=== PATIENT | female | born 1950 | race Caucasian/White ===

== ENCOUNTER → 2023-10-05 | Outpatient (CLI) | payer OTHER, SELFPAY ==
[2023-10-05 10:09] LABS: Hematocrit 32.6 % (37-47); Hemoglobin 11.7 g/dL (12.0-15.0); Mean Corp Hgb Conc 35.9 g/dL (32-36); Mean Corpuscular Hgb 31.9 pg (27.0-32.0); Mean Corpuscular Volume 88.8 fL (81-99); Mean Platelet Vol. 13.7 fl (6.2-12.0); POSITIVE COUNT YES; Platelet Count 55 K/mm3 (150-450); RBC Distribution Width CV 12.5 % (11.6-14.6); RBC Distribution Width SD 40.7 fl (35.1-43.9); Red Blood Count 3.67 M/mm3 (4.2-5.4); White Blood Count 8.6 K/mm3 (4.4-11.0)
[2023-10-05 10:44] LABS: Differential Comment SCANNED; Scan Indicated on CBC? Y/N YES- FLAGS NOTED
[2023-10-05 11:07] LABS: ALB/GLOB Ratio 1.3 RATIO (0.9-2.4); AST(SGOT) 9 U/L (15-37); Alanine Aminotransfer ALT/SGPT 12 U/L (13-56); Albumin, Serum 4.1 g/dL (3.2-5.0); Alkaline Phosphatase 103 U/L (45-117); Anion Gap 10 (5-15); BUN 25 mg/dL (7-18); BUN/Creat Ratio 21.7 RATIO (10-20); Calcium,Total 8.9 mg/dL (8.5-10.1); Chloride 98 mmol/L (98-107); Creatinine, Serum 1.15 mg/dL (0.55-1.02); EST Glomerular Filtration Rate 50 mL/min (>60); Est Glom Filt Rate - Afr Amer 60 mL/min (>60); Globulin 3.2 g/dL (2.2-4.2); Glucose 125 mg/dL (74-106); Potassium 2.5 mmol/L (3.5-5.1); Protein, Total 7.3 g/dL (6.4-8.2); Sodium Level 136 mmol/L (136-145)
== END | disposition home or self-care (01) ==
DX: C50.911 Malignant neoplasm of unspecified site of right female breast (principal); D69.6 Thrombocytopenia, unspecified
CPT/HCPCS: 36415; 80053; 85027

== ENCOUNTER → 2023-10-09 | Outpatient (CLI) | payer OTHER, SELFPAY ==
[2023-10-09 10:24] LABS: Hemoglobin 8.7 g/dL (12.0-15.0); Mean Corp Hgb Conc 33.5 g/dL (32-36); Mean Corpuscular Hgb 31.9 pg (27.0-32.0); Mean Corpuscular Volume 95.2 fL (81-99); Mean Platelet Vol. 12.3 fl (6.2-12.0); POSITIVE COUNT YES; Platelet Count 52 K/mm3 (150-450); RBC Distribution Width CV 13.8 % (11.6-14.6); RBC Distribution Width SD 46.6 fl (35.1-43.9); Red Blood Count 2.73 M/mm3 (4.2-5.4); White Blood Count 8.1 K/mm3 (4.4-11.0)
[2023-10-09 10:26] LABS: Scan Indicated on CBC? Y/N YES- FLAGS NOTED
[2023-10-09 11:04] LABS: ALB/GLOB Ratio 1.3 RATIO (0.9-2.4); AST(SGOT) 5 U/L (15-37); Alanine Aminotransfer ALT/SGPT 11 U/L (13-56); Albumin, Serum 3.2 g/dL (3.2-5.0); Alkaline Phosphatase 77 U/L (45-117); Anion Gap 4 (5-15); BUN 9 mg/dL (7-18); BUN/Creat Ratio 8.2 RATIO (10-20); Calcium,Total 8.2 mg/dL (8.5-10.1); Chloride 106 mmol/L (98-107); EST Glomerular Filtration Rate 52 mL/min (>60); Est Glom Filt Rate - Afr Amer 63 mL/min (>60); Globulin 2.4 g/dL (2.2-4.2); Glucose 108 mg/dL (74-106); Potassium 3.9 mmol/L (3.5-5.1); Protein, Total 5.6 g/dL (6.4-8.2); Sodium Level 139 mmol/L (136-145)
== END | disposition home or self-care (01) ==
DX: D69.6 Thrombocytopenia, unspecified (principal)
CPT/HCPCS: 36415; 80053; 85027

== ENCOUNTER → 2023-10-12 | Outpatient (CLI) | payer OTHER, SELFPAY ==
[2023-10-12 11:43] LABS: Absolute Lymphocyte Count 0.98 X10^3/uL (0.83-4.51); Absolute Neutrophil Count 4.9 X10^3/uL (2.0-7.7); Basophil# 0.04 X10^3/uL; Basophil% 0.6 % (0-1); Eosinophil# 0.06 X10^3/uL; Eosinophils% 0.9 % (0-5); Hematocrit 27.9 % (37-47); Hemoglobin 9.4 g/dL (12.0-15.0); Lymphocyte # 0.98 X10^3/ul (0.83-4.51); Lymphocyte % 15.2 % (19-41); Mean Corp Hgb Conc 33.7 g/dL (32-36); Mean Corpuscular Volume 94.9 fL (81-99); Mean Platelet Vol. 11.7 fl (6.2-12.0); Monocyte# 0.38 X10^3/uL; Monocyte% 5.9 % (0-10); NRBC Flagged by Analyzer 0 % (0-5); Neutrophil # 4.86 X10^3/uL (2.7-7.7); Neutrophil % 75.5 % (47-70); POSITIVE COUNT YES; Platelet Count 49 K/mm3 (150-450); RBC Distribution Width CV 14.3 % (11.6-14.6); Red Blood Count 2.94 M/mm3 (4.2-5.4); White Blood Count 6.4 K/mm3 (4.4-11.0)
[2023-10-12 12:27] LABS: ALB/GLOB Ratio 1.5 RATIO (0.9-2.4); AST(SGOT) 7 U/L (15-37); Alanine Aminotransfer ALT/SGPT 11 U/L (13-56); Albumin, Serum 3.6 g/dL (3.2-5.0); Alkaline Phosphatase 75 U/L (45-117); Anion Gap 6 (5-15); BUN 7 mg/dL (7-18); BUN/Creat Ratio 6.9 RATIO (10-20); Calcium,Total 7.6 mg/dL (8.5-10.1); Chloride 104 mmol/L (98-107); Creatinine, Serum 1.02 mg/dL (0.55-1.02); EST Glomerular Filtration Rate 57 mL/min (>60); Est Glom Filt Rate - Afr Amer 69 mL/min (>60); Globulin 2.4 g/dL (2.2-4.2); Glucose 101 mg/dL (74-106); Potassium 3.4 mmol/L (3.5-5.1); Sodium Level 139 mmol/L (136-145)
[2023-10-13 13:10] LABS: Pathologist Review Reviewed
== END | disposition home or self-care (01) ==
DX: C50.911 Malignant neoplasm of unspecified site of right female breast (principal); D69.6 Thrombocytopenia, unspecified
CPT/HCPCS: 36415; 80053; 85025

== ENCOUNTER 2023-10-17 08:54 | Outpatient (CLI) | payer OTHER, SELFPAY ==
[2023-10-17 09:22] LABS: Hematocrit 26.9 % (37-47); Hemoglobin 8.8 g/dL (12.0-15.0); Mean Corp Hgb Conc 32.7 g/dL (32-36); Mean Corpuscular Hgb 31.8 pg (27.0-32.0); Mean Corpuscular Volume 97.1 fL (81-99); Mean Platelet Vol. 11.7 fl (6.2-12.0); POSITIVE COUNT YES; Platelet Count 55 K/mm3 (150-450); RBC Distribution Width CV 16.4 % (11.6-14.6); RBC Distribution Width SD 55.7 fl (35.1-43.9); Red Blood Count 2.77 M/mm3 (4.2-5.4)
[2023-10-17 14:23] LABS: ALB/GLOB Ratio 1.2 RATIO (0.9-2.4); AST(SGOT) 9 U/L (15-37); Alanine Aminotransfer ALT/SGPT 13 U/L (13-56); Albumin, Serum 3.5 g/dL (3.2-5.0); Alkaline Phosphatase 63 U/L (45-117); Anion Gap 6 (5-15); BUN 11 mg/dL (7-18); BUN/Creat Ratio 12.9 RATIO (10-20); Chloride 106 mmol/L (98-107); Creatinine, Serum 0.85 mg/dL (0.55-1.02); EST Glomerular Filtration Rate 70 mL/min (>60); Est Glom Filt Rate - Afr Amer 85 mL/min (>60); Globulin 2.8 g/dL (2.2-4.2); Glucose 108 mg/dL (74-106); Potassium 3.8 mmol/L (3.5-5.1); Protein, Total 6.3 g/dL (6.4-8.2); Sodium Level 139 mmol/L (136-145); T4 Free Direct 1.22 ng/dL (0.76-1.46); Thyroid Stim Hormone (TSH) 0.44 uIU/mL (0.358-3.74)
== END 2023-10-17 23:59 | disposition home or self-care (01) ==
LOC: LAB 08:56
DX: C50.911 Malignant neoplasm of unspecified site of right female breast (principal); D69.6 Thrombocytopenia, unspecified
CPT/HCPCS: 36415; 80053; 84439; 84443; 85027

== ENCOUNTER 2023-10-24 16:01 | Emergency (ER) | payer OTHER, SELFPAY ==
[2023-10-24 16:03] VITALS: BP 137/79; PULSE 91; RESP 18; TEMP 36.1; O2SAT 98; BMI 25.7
--- NOTE | 2023-10-24 16:20 | CT_ITS ---
STUDY: CT BRAIN WITHOUT CONTRAST REASON FOR EXAM: Female, 72 years old. headache RADIATION DOSAGE (If Supplied By Facility): CTDIvol = ( 44.99 ) mGy, DLP = ( 796.11 ) mGycm TECHNIQUE: Transaxial CT imaging of the brain was performed without administration of intravenous contrast material. Individualized dose optimization techniques were used for this CT. COMPARISON: No relevant priors. FINDINGS: Normal soft tissue structures. Normal calvarium. Mild cortical atrophy and minor periventricular white matter ischemic changes. Normal basal ganglia and thalami. Normal brainstem. Normal cerebellum. Partial empty sella deformity of uncertain clinical significance There is no intracranial hemorrhage. There are no findings of an acute ischemic infarction. Normal visualized paranasal sinuses. Postsurgical changes of the orbits CT/Brain/Head without Contrast IMPRESSION: Mild cortical atrophy and minor periventricular white matter ischemic changes. Partial empty sella deformity of uncertain clinical significance No evidence for obstructive hydrocephalus mass or acute bleed... Electronically Signed: Bonifacio Robles MD at 18:08 EDT ,
--- NOTE | 2023-10-24 16:20 | EKG12_ITS ---
Test Reason : SYNCOPE Blood Pressure : / mmHG Vent. Rate : 090 BPM Atrial Rate : 090 BPM P-R Int : 154 ms QRS Dur : 078 ms QT Int : 384 ms P-R-T Axes : 033 -23 037 degrees QTc Int : 469 ms Sinus rhythm with Premature atrial complexes Otherwise normal ECG Confirmed by JESSY BULLOCK, SKINNY ([id number]), story editor ERA HAMPTON ([id number]) on 10/25/2023 9:18:40 AM Referred By: Confirmed By:SKINNY JIMÉNEZ MD
--- NOTE | 2023-10-24 16:21 | US_ITS ---
STUDY: ABDOMINAL ULTRASOUND - RIGHT UPPER QUADRANT REASON FOR VISIT: Female, 72 years old pain -- hx of choledocholithiasis TECHNIQUE: Ultrasound evaluation of the right upper quadrant was performed with real-time and static lauren-scale imaging. TECHNICAL QUALITY: Adequate. COMPARISON: None. FINDINGS: Liver: The liver measures 16.4 cm. There is diffusely increased echogenicity of the liver. The bile ducts are within normal limits. There is hepatic color flow. The direction of portal flow is hepatopetal. There is no demonstrated mass lesion. Gallbladder: Gallbladder not visualized status post cholecystectomy. Common Bile Duct (C.B.D.): The common bile duct measures 0.03 mm. Pancreas: Normal size of the head, body and tail of the pancreas. There is normal echogenicity of the pancreas. There is no demonstrated pancreatic mass or cyst. Right Kidney: Normal size of the right kidney. The right kidney measures 12.4 x 6.8 x 4.1 cm. Normal renal cortex. The right cortex measures 1 cm. There is no demonstrated renal mass or cyst. There is no right hydronephrosis. US/Gallbladder IMPRESSION: Mildly enlarged fatty infiltrated liver. Status post cholecystectomy Electronically Signed: Bonifacio Robles MD at 18:03 EDT ,
--- NOTE | 2023-10-24 16:22 | EX.ED.DYSGE1 ---
HPI History of Present Illness Chief Complaint: Abn Labs Informant: patient Narrative Narrative: [facility]. Reported elevated bilirubin. Patient diagnosed with breast cancer this past July reports screening labs found to have platelets that were low which delayed surgery. She has bilateral mastectomy, started on chemotherapy every 21 days last treatment 5 days ago with increasing dosing. Headache since then. That discomfort intermittent nausea and vomiting since May. 6 years ago describes acute cholangitis was in a coma with multiple ERCPs and stenting. Review of labs in the system bilirubin 1.5 doubled from a week ago. AST ALT normal. Denies fevers or chills. Reports persistent headache. No vision changes. Today syncope x 2 states had discomfort when this happened. PFSH PFSH Home Medications zganyqkycr-fyxbtptnnmbbp-cqvzgbko 50 mg-300 mg-40 mg capsule (Fioricet) 1 cap PO Q8H PRN headache #20 caps 10/24/23 [Rx Last Taken Unknown] Allergy/AdvReac Type Severity Reaction Status Date / Time codeine Allergy PT UNSURE Verified 10/24/23 17:29 OF REACTION cyclobenzaprine Allergy PT UNSURE Verified 10/24/23 17:29 OF REACTION diazepam [From Valium] Allergy PT UNSURE Verified 10/24/23 17:29 OF REACTION diphenhydramine Allergy Itching Verified 10/24/23 17:29 [From Benadryl] gabapentin Allergy PT UNSURE Verified 10/24/23 17:29 OF REACTION indomethacin [From Indocin] Allergy PT UNSURE Verified 10/24/23 17:29 OF REACTION Iodinated Contrast Media Allergy PT UNSURE Verified 10/24/23 17:29 OF REACTION methocarbamol Allergy PT UNSURE Verified 10/24/23 17:29 OF REACTION NSAIDS (Non-Steroidal Allergy PT UNSURE Verified 10/24/23 17:29 Anti-Inflamma OF REACTION Penicillins Allergy Anaphylaxis Verified 10/24/23 17:29 pregabalin Allergy Nausea/Vom/ Verified 10/24/23 17:29 Diarrhea promethazine [From Phenergan] Allergy PT UNSURE Verified 10/24/23 17:29 OF REACTION sulfacetamide Allergy PT UNSURE Verified 10/24/23 17:29 [From Sulfamide] OF REACTION sumatriptan Allergy PT UNSURE Verified 10/24/23 17:29 OF REACTION tramadol Allergy PT UNSURE Verified 10/24/23 17:29 OF REACTION Social History Smoking Status: Never smoker ROS ROS ED Constitutional Constitutional ED: Denies chills, fever(s) or sweats Eyes Eyes: Denies change in vision ENT ENT ED: Denies dysphagia or sore throat Cardiovascular Cardiovascular: Denies chest pain, leg edema, palpitations or racing heartbeat Respiratory/Chest Respiratory/Chest: Denies cough, dyspnea or dyspnea on exertion Gastrointestinal Gastrointestinal: Reports abdominal pain and nausea; Denies diarrhea or vomiting Genitourinary Genitourinary ED: Denies dysuria, hematuria or urinary frequency Musculoskeletal Musculoskeletal: Denies back pain, extremity pain or neck pain Integumentary Denies rash or wounds Neurologic Neurologic: Reports headache(s); Denies paresthesias or weakness EXAM Physical Exam Const Vital Signs: 10/24/23 16:03 10/24/23 17:00 10/24/23 17:35 Temperature 97 F L Temperature Source Temporal Pulse Rate 91 77 Respiratory Rate 18 22 H Respiratory Effort Normal Non-Labored Respiratory Pattern Normal Blood Pressure 137/79 H 117/101 H Blood Pressure Mean 98 106 Pulse Ox 98 100 Oxygen Delivery Method Room Air Room Air 10/24/23 18:00 10/24/23 18:48 Temperature 97.4 F L Temperature Source Pulse Rate 76 77 Respiratory Rate 14 20 H Respiratory Effort Respiratory Pattern Blood Pressure 130/67 H 126/63 H Blood Pressure Mean 88 84 Pulse Ox 100 99 Oxygen Delivery Method Room Air Positive well nourished and well developed General Appearance ED: well developed and NAD HEENT Reports moist mucous membranes normocephalic and atraumatic Eyes PERRL, EOMs intact bilaterally and conjunctivae normal General Eye ED: Yes normal appearance of both eyes; Negative for scleral icterus Neck no lymphadenopathy and supple General: Negative for tenderness Chest Wall Chest: Negative for tenderness Resp normal respiratory effort and normal air movement Effort and Inspection: symmetric chest movement; Negative for respiratory distress Cardio regular rate, regular rhythm and no murmurs Peripheral Pulses: pulses 2+ throughout GI normal to inspection, nondistended, normoactive bowel sounds GI Narrative: Tenderness mid abdomen. Negative Burris's or McBurney's tenderness. Palpation: Negative for guarding or rebound tenderness present Back/Spine no CVA tenderness and no thoracic nor lumbar tenderness Extremity normal to inspection General Extremety ED: Negative for edema or tenderness General Extremity: Negative for edema Neuro oriented x3, CN's II-XII intact bilaterally and no sensory deficits noted Sensorium / Orientation: awake and alert Skin no rashes or lesions noted and no wounds MDM MDM MDM Narrative Medical decision making narrative: Interventions / MDM: Differential diagnosis: Headache, lab abnormalities, syncope Diagnosis considered but do not suspect: Choledocholithiasis however labs and ultrasound negative. No clinical meningitis. My EKG interpretation: Sinus rate of 90, no ST or T wave changes, PACs noted. QTc 469. Imaging independently reviewed and interpreted by myself: CT brain: Partial empty sella, no masses. Right upper quadrant ultrasound: Empty gallbladder, common bile duct 3 mm. Was also read by radiology. External documents reviewed: Labs from today outpatient platelets 66, total bilirubin 1.5. Test considered but not ordered:N/A ED course: Presenting syncope likely vasovagal with pain induced. EKG ordered. Shows no acute process. Patient bilirubin 1.5 not significant however doubled and having abdominal pain since May with intermittent nausea and vomiting. History of choledocholithiasis with cholangitis. Will check abdominal labs, will check right upper quadrant ultrasound. Headache symptoms will give fluids and migraine cocktail. Labs trending down total bilirubin 1.2. Lipase normal. Ultrasound normal common bile duct. CT brain negative with no mass. Headache not improved. However states stable likely chemo induced is worsened since her treatment. She has no focal deficits or meningismus symptoms. She request Fioricet for which she is tolerated in the past we will monitor symptoms. Given dose in the ED. Short prescription. Labs slight hypokalemia at 3.1. Ordered for dosing however states she has at home and wants to take when she gets home. She is ambulating department no return of symptoms. Discussed her syncope likely pain induced from vasovagal. She has nonsurgical abdomen. Lipase was normal. Hemoglobin stable at 10.1. Patient reassured outpatient follow-up with return precautions. All questions were answered. Re-evaluation: stable Disposition discussed with patient/family/significant other: Patient and family Case discussed with consulting clinician: N/A This note was generated with [employer] dictation software. It may contain incorrect words, spelling, and punctuation that were not noted in checking the note before signing. Lab Data Attestation: I reviewed the patient's lab results. Labs: Laboratory Results - last 24 hr 10/24/23 16:57 WBC 4.2 L RBC 3.21 L Hgb 10.1 L Hct 29.9 L MCV 93.1 MCH 31.5 MCHC 33.8 RDW Std Deviation 52.0 H RDW Coeff of Ramirez 15.1 H Plt Count 62 L MPV 12.7 H Immature Gran % (Auto) 1.200 H Neut % (Auto) 79.5 H Lymph % (Auto) 15.8 L [place] % (Auto) 2.1 Eos % (Auto) 0.2 Baso % (Auto) 1.2 H Absolute Neuts (auto) 3.4 Absolute Lymphs (auto) 0.67 L Nucleated RBC % 0 Differential Comment SCANNED Sodium 140 Potassium 3.1 L Chloride 106 Carbon Dioxide 28.0 Anion Gap 6 BUN 9 Creatinine 0.80 Estim Creat Clear Calc 66.55 Est GFR (MDRD) Af Amer 91 Est GFR (MDRD) Non-Af 75 BUN/Creatinine Ratio 11.3 Glucose 118 H Calcium 8.8 Total Bilirubin 1.20 H Direct Bilirubin 0.39 H AST 4 L ALT 14 Alkaline Phosphatase 75 Total Protein 7.0 Albumin 4.3 Globulin 2.7 Lipase 32 Radiography Diagnostic Testing: Clinical Impression(s) from Imaging Studies Brain CT 10/24/23 16:20 IMPRESSION: Mild cortical atrophy and minor periventricular white matter ischemic changes. Partial empty sella deformity of uncertain clinical significance No evidence for obstructive hydrocephalus mass or acute bleed... Electronically Signed: Bonifacio Robles MD at 18:08 EDT , Gallbladder Ultrasound 10/24/23 16:21 IMPRESSION: Mildly enlarged fatty infiltrated liver. Status post cholecystectomy Electronically Signed: Bonifacio Robles MD at 18:03 EDT , Discharge Plan Triage Chief Complaint: Abn Labs Other Complaint: Syncope ED Provider: Sundeep Cm Dx/Rx/DC Orders Clinical Impression: Idiopathic hyperbilirubinemia, Headache, Breast cancer, Hypokalemia, Syncope Instructions: Self-Care for Headaches, ED Hypokalemia Prescriptions: New ifolkdhoaw-sgoymbomtjyxa-yban [Fioricet] 50-300-40 mg capsule 1 cap PO Q8H PRN (Reason: headache) Qty: 20 0RF Primary Care Provider: [facility] Referrals: [facility] [Primary Care Provider] - 1 Week Activity Restrictions/Additional Instructions: Repeat labs total bili 1.2 trending down to 1.5. Lipase normal. Right upper quadrant ultrasound with common bile duct 3 mm this is normal. Head CT negative. Your potassium 3.1. Take oral potassium at home. Follow-up with your doctors. Disposition Disposition: Home, Self Care Discharge Date/Time: 10/24/23 18:50
[2023-10-24] MEDS: 0.9% Normal Saline (1000mL) 1,000 ML 1000 ML IV (16:31)
[2023-10-24] MEDS: Metoclopramide 10 MG/2 ML Vial 5 MG IV (16:31)
--- NOTE | 2023-10-24 16:31 | NURSING ---
NO OLD EKGS
[2023-10-24 17:00] VITALS: BP 117/101; PULSE 77; RESP 22; O2SAT 100
[2023-10-24 17:07] LABS: Absolute Lymphocyte Count 0.67 X10^3/uL (0.83-4.51); Absolute Neutrophil Count 3.4 X10^3/uL (2.0-7.7); Basophil# 0.05 X10^3/uL; Basophil% 1.2 % (0-1); Eosinophil# 0.01 X10^3/uL; Eosinophils% 0.2 % (0-5); Hematocrit 29.9 % (37-47); Hemoglobin 10.1 g/dL (12.0-15.0); Lymphocyte # 0.67 X10^3/ul (0.83-4.51); Lymphocyte % 15.8 % (19-41); Mean Corp Hgb Conc 33.8 g/dL (32-36); Mean Corpuscular Hgb 31.5 pg (27.0-32.0); Mean Corpuscular Volume 93.1 fL (81-99); Mean Platelet Vol. 12.7 fl (6.2-12.0); Monocyte# 0.09 X10^3/uL; Monocyte% 2.1 % (0-10); NRBC Flagged by Analyzer 0 % (0-5); Neutrophil # 3.36 X10^3/uL (2.7-7.7); Neutrophil % 79.5 % (47-70); POSITIVE COUNT YES; POSITIVE MORPHOLOGY YES; Platelet Count 62 K/mm3 (150-450); RBC Distribution Width CV 15.1 % (11.6-14.6); Red Blood Count 3.21 M/mm3 (4.2-5.4); White Blood Count 4.2 K/mm3 (4.4-11.0)
[2023-10-24 17:11] LABS: Differential Indicated SCAN CRITERIA MET
[2023-10-24 17:22] LABS: AST(SGOT) 4 U/L (15-37); Alanine Aminotransfer ALT/SGPT 14 U/L (13-56); Albumin, Serum 4.3 g/dL (3.2-5.0); Alkaline Phosphatase 75 U/L (45-117); Anion Gap 6 (5-15); BUN 9 mg/dL (7-18); BUN/Creat Ratio 11.3 RATIO (10-20); Bilirubin, Direct 0.39 mg/dL (0.00-0.30); Calcium,Total 8.8 mg/dL (8.5-10.1); Chloride 106 mmol/L (98-107); EST Glomerular Filtration Rate 75 mL/min (>60); Est Glom Filt Rate - Afr Amer 91 mL/min (>60); Estimated Creatinine Clearance 66.55 ml/min; Globulin 2.7 g/dL (2.2-4.2); Glucose 118 mg/dL (74-106); Lipase 32 U/L (13-75); Potassium 3.1 mmol/L (3.5-5.1); Sodium Level 140 mmol/L (136-145)
[2023-10-24 17:29] LABS: Differential Comment SCANNED
[2023-10-24 18:00] VITALS: BP 130/67; PULSE 76; RESP 14; O2SAT 100
[2023-10-24] MEDS: Acetaminophen/Butalbital/Caffe 1 Tablet PO (18:44)
[2023-10-24 18:48] VITALS: BP 126/63; PULSE 77; RESP 20; TEMP 36.3; O2SAT 99
== END 2023-10-24 18:50 | disposition home or self-care (01) ==
PROVIDERS: Emergency Provider Emergency Medicine; Visit Provider Emergency Medicine
DX: E80.6 Other disorders of bilirubin metabolism (principal); C50.919 Malignant neoplasm of unspecified site of unspecified female breast; E87.6 Hypokalemia; R55 Syncope and collapse; R51.9 Headache, unspecified
CPT/HCPCS: 70450; 76705; 80048; 80076; 83690; 85025; 93005; 96361; 96374; 99284

== ENCOUNTER → 2023-10-24 | Outpatient (CLI) | payer OTHER, SELFPAY ==
[2023-10-24 15:19] LABS: Hematocrit 32.3 % (37-47); Hemoglobin 10.9 g/dL (12.0-15.0); Mean Corp Hgb Conc 33.7 g/dL (32-36); Mean Corpuscular Hgb 32.1 pg (27.0-32.0); Mean Platelet Vol. 13.1 fl (6.2-12.0); POSITIVE COUNT YES; Platelet Count 66 K/mm3 (150-450); RBC Distribution Width CV 15.4 % (11.6-14.6); RBC Distribution Width SD 53.3 fl (35.1-43.9); White Blood Count 4.7 K/mm3 (4.4-11.0)
[2023-10-24 15:28] LABS: Scan Indicated on CBC? Y/N YES- FLAGS NOTED
[2023-10-24 15:30] LABS: ALB/GLOB Ratio 1.6 RATIO (0.9-2.4); AST(SGOT) 4 U/L (15-37); Alanine Aminotransfer ALT/SGPT 14 U/L (13-56); Albumin, Serum 4.6 g/dL (3.2-5.0); Alkaline Phosphatase 81 U/L (45-117); Anion Gap 8 (5-15); BUN 9 mg/dL (7-18); BUN/Creat Ratio 10.5 RATIO (10-20); Chloride 103 mmol/L (98-107); Creatinine, Serum 0.86 mg/dL (0.55-1.02); EST Glomerular Filtration Rate 69 mL/min (>60); Est Glom Filt Rate - Afr Amer 84 mL/min (>60); Globulin 2.9 g/dL (2.2-4.2); Glucose 125 mg/dL (74-106); Potassium 3.6 mmol/L (3.5-5.1); Protein, Total 7.5 g/dL (6.4-8.2); Sodium Level 138 mmol/L (136-145)
[2023-10-24 16:00] LABS: Differential Comment SCANNED
== END | disposition home or self-care (01) ==
PROVIDERS: Referring Provider Internal Medicine; Visit Provider Internal Medicine
DX: C50.911 Malignant neoplasm of unspecified site of right female breast (principal)
CPT/HCPCS: 36415; 80053; 85027

== ENCOUNTER 2023-11-01 10:40 | Outpatient (RCR) | payer OTHER, SELFPAY ==
[2023-11-01 11:22] LABS: Hematocrit 30.8 % (37-47); Hemoglobin 10.2 g/dL (12.0-15.0); Mean Corp Hgb Conc 33.1 g/dL (32-36); Mean Corpuscular Hgb 31.5 pg (27.0-32.0); Mean Corpuscular Volume 95.1 fL (81-99); Mean Platelet Vol. 11.9 fl (6.2-12.0); POSITIVE COUNT YES; Platelet Count 83 K/mm3 (150-450); RBC Distribution Width CV 15.7 % (11.6-14.6); RBC Distribution Width SD 53.8 fl (35.1-43.9); Red Blood Count 3.24 M/mm3 (4.2-5.4)
[2023-11-01 11:23] LABS: Scan Indicated on CBC? Y/N NO
[2023-11-01 12:01] LABS: ALB/GLOB Ratio 1.3 RATIO (0.9-2.4); AST(SGOT) 4 U/L (15-37); Alanine Aminotransfer ALT/SGPT 12 U/L (13-56); Albumin, Serum 3.9 g/dL (3.2-5.0); Alkaline Phosphatase 76 U/L (45-117); Anion Gap 5 (5-15); BUN 10 mg/dL (7-18); BUN/Creat Ratio 13.9 RATIO (10-20); Calcium,Total 8.8 mg/dL (8.5-10.1); Chloride 105 mmol/L (98-107); Creatinine, Serum 0.72 mg/dL (0.55-1.02); EST Glomerular Filtration Rate 85 mL/min (>60); Est Glom Filt Rate - Afr Amer 103 mL/min (>60); Glucose 113 mg/dL (74-106); Potassium 3.3 mmol/L (3.5-5.1); Protein, Total 6.9 g/dL (6.4-8.2); Sodium Level 139 mmol/L (136-145)
== END 2023-11-07 23:13 | disposition home or self-care (01) ==
LOC: LAB 10:40
PROVIDERS: Referring Provider Internal Medicine; Visit Provider Internal Medicine
DX: C50.911 Malignant neoplasm of unspecified site of right female breast (principal); D69.6 Thrombocytopenia, unspecified
CPT/HCPCS: 36415; 80053; 85027

== ENCOUNTER 2023-12-07 10:22 | Outpatient (RCR) | payer OTHER, SELFPAY ==
[2023-11-08 12:58] LABS: Absolute Lymphocyte Count 0.78 X10^3/uL (0.83-4.51); Absolute Neutrophil Count 3.4 X10^3/uL (2.0-7.7); Basophil# 0.02 X10^3/uL; Basophil% 0.4 % (0-1); Eosinophil# 0.05 X10^3/uL; Hematocrit 30.1 % (37-47); Hemoglobin 9.9 g/dL (12.0-15.0); Lymphocyte # 0.78 X10^3/ul (0.83-4.51); Lymphocyte % 16.4 % (19-41); Mean Corp Hgb Conc 32.9 g/dL (32-36); Mean Corpuscular Hgb 31.2 pg (27.0-32.0); Mean Platelet Vol. 12.5 fl (6.2-12.0); Monocyte# 0.43 X10^3/uL; NRBC Flagged by Analyzer 0 % (0-5); Neutrophil # 3.44 X10^3/uL (2.7-7.7); Neutrophil % 72.2 % (47-70); POSITIVE COUNT YES; Platelet Count 73 K/mm3 (150-450); RBC Distribution Width CV 15.2 % (11.6-14.6); RBC Distribution Width SD 52.9 fl (35.1-43.9); Red Blood Count 3.17 M/mm3 (4.2-5.4); White Blood Count 4.8 K/mm3 (4.4-11.0)
[2023-11-08 13:31] LABS: ALB/GLOB Ratio 1.3 RATIO (0.9-2.4); AST(SGOT) 7 U/L (15-37); Alanine Aminotransfer ALT/SGPT 13 U/L (13-56); Albumin, Serum 3.5 g/dL (3.2-5.0); Alkaline Phosphatase 72 U/L (45-117); Anion Gap 4 (5-15); BUN 10 mg/dL (7-18); Calcium,Total 8.7 mg/dL (8.5-10.1); Chloride 104 mmol/L (98-107); Creatinine, Serum 0.72 mg/dL (0.55-1.02); EST Glomerular Filtration Rate 85 mL/min (>60); Est Glom Filt Rate - Afr Amer 103 mL/min (>60); Globulin 2.6 g/dL (2.2-4.2); Glucose 105 mg/dL (74-106); Potassium 2.9 mmol/L (3.5-5.1); Protein, Total 6.1 g/dL (6.4-8.2); Sodium Level 139 mmol/L (136-145)
[2023-11-15 09:16] LABS: Absolute Lymphocyte Count 0.64 X10^3/uL (0.83-4.51); Absolute Neutrophil Count 1.4 X10^3/uL (2.0-7.7); Basophil# 0.04 X10^3/uL; Basophil% 1.8 % (0-1); Eosinophil# 0.03 X10^3/uL; Eosinophils% 1.3 % (0-5); Hematocrit 26.3 % (37-47); Hemoglobin 8.6 g/dL (12.0-15.0); Lymphocyte # 0.64 X10^3/ul (0.83-4.51); Lymphocyte % 28.7 % (19-41); Mean Corp Hgb Conc 32.7 g/dL (32-36); Mean Corpuscular Volume 94.9 fL (81-99); Mean Platelet Vol. 12.5 fl (6.2-12.0); Monocyte# 0.09 X10^3/uL; NRBC Flagged by Analyzer 0 % (0-5); Neutrophil % 62.9 % (47-70); POSITIVE COUNT YES; POSITIVE MORPHOLOGY YES; Platelet Count 42 K/mm3 (150-450); RBC Distribution Width CV 13.5 % (11.6-14.6); RBC Distribution Width SD 47.8 fl (35.1-43.9); Red Blood Count 2.77 M/mm3 (4.2-5.4); White Blood Count 2.2 K/mm3 (4.4-11.0)
[2023-11-15 09:25] LABS: Differential Indicated SCAN CRITERIA MET
[2023-11-15 10:03] LABS: ALB/GLOB Ratio 1.3 RATIO (0.9-2.4); AST(SGOT) 7 U/L (15-37); Alanine Aminotransfer ALT/SGPT 12 U/L (13-56); Albumin, Serum 3.4 g/dL (3.2-5.0); Alkaline Phosphatase 80 U/L (45-117); Anion Gap 5 (5-15); BUN 13 mg/dL (7-18); BUN/Creat Ratio 16.7 RATIO (10-20); Calcium,Total 8.4 mg/dL (8.5-10.1); Chloride 103 mmol/L (98-107); Creatinine, Serum 0.78 mg/dL (0.55-1.02); EST Glomerular Filtration Rate 78 mL/min (>60); Est Glom Filt Rate - Afr Amer 94 mL/min (>60); Globulin 2.7 g/dL (2.2-4.2); Glucose 105 mg/dL (74-106); Potassium 3.4 mmol/L (3.5-5.1); Protein, Total 6.1 g/dL (6.4-8.2); Sodium Level 137 mmol/L (136-145)
[2023-11-22 09:35] LABS: Absolute Lymphocyte Count 0.45 X10^3/uL (0.83-4.51); Absolute Neutrophil Count 0.7 X10^3/uL (2.0-7.7); Basophil# 0.01 X10^3/uL; Basophil% 0.7 % (0-1); Eosinophil# 0.02 X10^3/uL; Eosinophils% 1.4 % (0-5); Hematocrit 27.3 % (37-47); Hemoglobin 8.8 g/dL (12.0-15.0); Lymphocyte # 0.45 X10^3/ul (0.83-4.51); Mean Corp Hgb Conc 32.2 g/dL (32-36); Mean Corpuscular Hgb 30.6 pg (27.0-32.0); Mean Corpuscular Volume 94.8 fL (81-99); Mean Platelet Vol. 11.2 fl (6.2-12.0); Monocyte% 20.7 % (0-10); NRBC Flagged by Analyzer 0 % (0-5); Neutrophil # 0.65 X10^3/uL (2.7-7.7); Neutrophil % 44.8 % (47-70); POSITIVE COUNT YES; POSITIVE DIFFERENTIAL YES; Platelet Count 63 K/mm3 (150-450); RBC Distribution Width CV 14.5 % (11.6-14.6); RBC Distribution Width SD 48.5 fl (35.1-43.9); Red Blood Count 2.88 M/mm3 (4.2-5.4); White Blood Count 1.5 K/mm3 (4.4-11.0)
[2023-11-22 10:07] LABS: Differential Indicated SCAN CRITERIA MET
[2023-11-22 10:26] LABS: ALB/GLOB Ratio 1.2 RATIO (0.9-2.4); AST(SGOT) < 3 U/L (15-37); Alanine Aminotransfer ALT/SGPT 11 U/L (13-56); Albumin, Serum 3.5 g/dL (3.2-5.0); Alkaline Phosphatase 71 U/L (45-117); Anion Gap 4 (5-15); BUN 9 mg/dL (7-18); BUN/Creat Ratio 12.5 RATIO (10-20); Calcium,Total 8.8 mg/dL (8.5-10.1); Chloride 107 mmol/L (98-107); Creatinine, Serum 0.72 mg/dL (0.55-1.02); EST Glomerular Filtration Rate 85 mL/min (>60); Est Glom Filt Rate - Afr Amer 103 mL/min (>60); Globulin 2.8 g/dL (2.2-4.2); Glucose 113 mg/dL (74-106); Potassium 3.2 mmol/L (3.5-5.1); Protein, Total 6.3 g/dL (6.4-8.2); Sodium Level 140 mmol/L (136-145)
[2023-11-24 12:06] LABS: Pathologist Review Reviewed
[2023-11-28 10:36] LABS: Absolute Lymphocyte Count 0.79 X10^3/uL (0.83-4.51); Absolute Neutrophil Count 3.3 X10^3/uL (2.0-7.7); Basophil# 0.01 X10^3/uL; Basophil% 0.2 % (0-1); Eosinophil# 0.05 X10^3/uL; Eosinophils% 1.1 % (0-5); Hemoglobin 9.9 g/dL (12.0-15.0); Lymphocyte # 0.79 X10^3/ul (0.83-4.51); Lymphocyte % 17.1 % (19-41); Mean Corpuscular Hgb 31.1 pg (27.0-32.0); Mean Corpuscular Volume 94.3 fL (81-99); Mean Platelet Vol. 11.9 fl (6.2-12.0); Monocyte# 0.35 X10^3/uL; Monocyte% 7.6 % (0-10); NRBC Flagged by Analyzer 0 % (0-5); Neutrophil # 3.32 X10^3/uL (2.7-7.7); Neutrophil % 71.8 % (47-70); POSITIVE COUNT YES; Platelet Count 69 K/mm3 (150-450); RBC Distribution Width CV 15.1 % (11.6-14.6); RBC Distribution Width SD 52.1 fl (35.1-43.9); Red Blood Count 3.18 M/mm3 (4.2-5.4); White Blood Count 4.6 K/mm3 (4.4-11.0)
[2023-11-28 11:17] LABS: ALB/GLOB Ratio 1.3 RATIO (0.9-2.4); AST(SGOT) 6 U/L (15-37); Alanine Aminotransfer ALT/SGPT 11 U/L (13-56); Albumin, Serum 3.5 g/dL (3.2-5.0); Alkaline Phosphatase 71 U/L (45-117); Anion Gap 9 (5-15); BUN 11 mg/dL (7-18); BUN/Creat Ratio 14.2 RATIO (10-20); Calcium,Total 8.5 mg/dL (8.5-10.1); Chloride 104 mmol/L (98-107); Creatinine, Serum 0.77 mg/dL (0.55-1.02); EST Glomerular Filtration Rate 78 mL/min (>60); Est Glom Filt Rate - Afr Amer 95 mL/min (>60); Globulin 2.7 g/dL (2.2-4.2); Glucose 113 mg/dL (74-106); Potassium 3.2 mmol/L (3.5-5.1); Protein, Total 6.2 g/dL (6.4-8.2); Sodium Level 139 mmol/L (136-145)
[2023-12-07 11:27] LABS: Absolute Lymphocyte Count 0.47 X10^3/uL (0.83-4.51); Absolute Neutrophil Count 1.2 X10^3/uL (2.0-7.7); Basophil# 0.01 X10^3/uL; Basophil% 0.6 % (0-1); Eosinophil# 0.01 X10^3/uL; Eosinophils% 0.6 % (0-5); Hematocrit 26.4 % (37-47); Hemoglobin 8.8 g/dL (12.0-15.0); Lymphocyte # 0.47 X10^3/ul (0.83-4.51); Mean Corp Hgb Conc 33.3 g/dL (32-36); Mean Corpuscular Volume 90.1 fL (81-99); Mean Platelet Vol. 12.7 fl (6.2-12.0); Monocyte# 0.08 X10^3/uL; Monocyte% 4.6 % (0-10); NRBC Flagged by Analyzer 0 % (0-5); Neutrophil # 1.16 X10^3/uL (2.7-7.7); Neutrophil % 66.6 % (47-70); POSITIVE COUNT YES; POSITIVE DIFFERENTIAL YES; RBC Distribution Width CV 13.2 % (11.6-14.6); RBC Distribution Width SD 44.3 fl (35.1-43.9); Red Blood Count 2.93 M/mm3 (4.2-5.4); White Blood Count 1.7 K/mm3 (4.4-11.0)
[2023-12-07 11:42] LABS: Differential Indicated SCAN CRITERIA MET; Platelet Count 42 K/mm3 (150-450)
[2023-12-07 11:57] LABS: ALB/GLOB Ratio 1.2 RATIO (0.9-2.4); AST(SGOT) 7 U/L (15-37); Alanine Aminotransfer ALT/SGPT 11 U/L (13-56); Albumin, Serum 3.4 g/dL (3.2-5.0); Alkaline Phosphatase 68 U/L (45-117); Anion Gap 6 (5-15); BUN 12 mg/dL (7-18); BUN/Creat Ratio 17.1 RATIO (10-20); Calcium,Total 8.8 mg/dL (8.5-10.1); Chloride 100 mmol/L (98-107); EST Glomerular Filtration Rate 87 mL/min (>60); Est Glom Filt Rate - Afr Amer 106 mL/min (>60); Globulin 2.8 g/dL (2.2-4.2); Glucose 108 mg/dL (74-106); Potassium 3.1 mmol/L (3.5-5.1); Protein, Total 6.2 g/dL (6.4-8.2); Sodium Level 136 mmol/L (136-145)
[2023-12-07 13:20] LABS: Anisocytosis 2+; Differential Comment SCANNED; Microcytosis 1+; Tear Drop Cell 1+
[2023-12-07 13:21] LABS: Ovalocyte 1+
[2023-12-08 15:44] LABS: Pathologist Review Reviewed
== END 2023-12-07 18:00 | disposition home or self-care (01) ==
LOC: LAB 10:22
PROVIDERS: Referring Provider Internal Medicine; Visit Provider Internal Medicine
DX: C50.911 Malignant neoplasm of unspecified site of right female breast (principal); D64.9 Anemia, unspecified
CPT/HCPCS: 36415; 80053; 85025

== ENCOUNTER 2023-12-13 09:22 | Emergency (ER) | payer OTHER, SELFPAY ==
[2023-12-13 09:25] VITALS: BP 119/59; PULSE 76; RESP 16; TEMP 35.4; O2SAT 98; BMI 26.0
--- NOTE | 2023-12-13 09:31 | EDS_ITS ---
HPI History of Present Illness Chief Complaint: Headache PFSH PFSH Home Medications ?Medication ?Instructions ?Recorded ?Last Taken ?Type szvvppbrlv-pcahosekchfxi-unjssrhs 1 cap PO Q8H PRN headache #20 caps 10/24/23 Unknown Rx 50 mg-300 mg-40 mg capsule (Fioricet) Allergy/AdvReac Type Severity Reaction Status Date / Time cyclobenzaprine Allergy PT UNSURE Verified 12/13/23 09:24 OF REACTION diazepam (From Valium) Allergy PT UNSURE Verified 12/13/23 09:24 OF REACTION diphenhydramine (From Allergy Itching Verified 12/13/23 09:24 Benadryl) gabapentin Allergy PT UNSURE Verified 12/13/23 09:24 OF REACTION indomethacin (From Indocin) Allergy PT UNSURE Verified 12/13/23 09:24 OF REACTION Iodinated Contrast Media Allergy PT UNSURE Verified 12/13/23 09:24 OF REACTION methocarbamol Allergy PT UNSURE Verified 12/13/23 09:24 OF REACTION NSAIDS (Non-Steroidal Allergy PT UNSURE Verified 12/13/23 09:24 Anti-Inflamma OF REACTION Penicillins Allergy Anaphylaxis Verified 12/13/23 09:24 pregabalin Allergy Nausea/Vom/ Verified 12/13/23 09:24 Diarrhea promethazine (From Phenergan) Allergy PT UNSURE Verified 12/13/23 09:24 OF REACTION sulfacetamide (From Allergy PT UNSURE Verified 12/13/23 09:24 Sulfamide) OF REACTION sumatriptan Allergy PT UNSURE Verified 12/13/23 09:24 OF REACTION tramadol Allergy PT UNSURE Verified 12/13/23 09:24 OF REACTION Social History Smoking Status: Never smoker EXAM Physical Exam Const Vital Signs: 12/13/23 09:25 Temperature 95.7 F L Temperature Source Temporal Pulse Rate 76 Respiratory Rate 16 Blood Pressure 119/59 L Blood Pressure Mean 79 Pulse Ox 98 Oxygen Delivery Method Room Air MDM MDM MDM Narrative Medical decision making narrative: HISTORY OF PRESENT ILLNESS: 73-year-old female presents with headache. Notes chemo 1 week ago. REVIEW OF SYSTEMS: Pertinent positives: [] Pertinent negatives: [] PHYSICAL EXAM: Nursing triage notes reviewed, Vital signs reviewed Constitutional: please see mdm HENT: MMM Eyes: Pupils equal round and reactive to light, Extraocular muscles intact Neck: No stridor, no JVD, full neck ROM Lungs: Clear to auscultation, No wheezing or rales. No increased work of breathing, no conversational dyspnea, no accessory muscle use, no nasal flaring. No respiratory distress noted Heart: Regular rate and rhythm, No murmurs, No rubs and No gallops, 2+ distal pulses (radial, femoral, posterior tibial) in all extremities Abdomen: Soft, there is no tenderness, rigidity, rebound or guarding, no obvious peritoneal signs, no palpable pulsatile abdominal masses, no auscultated abdominal bruit : No CVAT Extremities: No edema Neuro: No focal neurological deficits, cranial nerves II through XII intact, 5/5 strength in all extremities. Intact sensation to light touch in all extremities, 2+ reflexes bilateral patella tendons. Normal gait. No ataxia. Skin: No rash or lesions noted MEDICAL DECISION MAKING: Chief Complaint: [] External records reviewed: Imaging reviewed: CT scan of the head shows mild cortical atrophy and minor periventricular matter ischemic changes Factors affecting care: none [] Social determinants of health: none [] History obtained from others: none [] Consults: none [] MDM Narrative: [] I considered the following differential diagnosis: [] ALL IMAGES (IF OBTAINED) HAVE BEEN PERSONALLY REVIEWED AND INTERPRETED BY MYSELF. [] The patient and/or family, caregivers express understanding. The patient and/or family, caregivers agrees with the plan. Shared decision making: I will have a discussion with the patient and or visitors regarding risk/benefits of further testing or admission. They will be made aware of of the risk/benefits inherent in this decision they will be given the opportunity to voice understanding. Total critical care time today provided was at least 0 [] minutes. This excludes separately billable procedures. Critical care time (if documented) is secondary to the patient having high probability of clinically significant/life threatening deterioration in the patient's condition which required my urgent intervention. Impression: [] Dispo: [] This note was generated with [employer] dictation software. It may contain incorrect words, spelling, and punctuation that were not noted in review of the chart prior to signing. Discharge Plan Triage Chief Complaint: Headache ED Provider: Josh Álvarez Dx/Rx/DC Orders Prescriptions: No Action zduzrgauon-vyvnxonkpsaku-ytjm [Fioricet] 50-300-40 mg capsule 1 cap PO Q8H PRN (Reason: headache) Qty: 20 0RF [facility] [facility] - Print Language: Serbian
--- NOTE | 2023-12-13 09:31 | EX.ED.DYSGE1 ---
HPI History of Present Illness Chief Complaint: Headache PFSH PFSH Home Medications ?Medication ?Instructions ?Recorded ?Last Taken ?Type swaefapsiz-ibwclgifwqjue-uwhfdshd 1 cap PO Q8H PRN headache #20 caps 10/24/23 Unknown Rx 50 mg-300 mg-40 mg capsule (Fioricet) zvrneemouo-vxxwkdmydwbsu-lxnvggjc 1 cap PO Q6H PRN headache #60 caps 12/13/23 Unknown Rx 50 mg-300 mg-40 mg capsule (Fioricet) Allergy/AdvReac Type Severity Reaction Status Date / Time cyclobenzaprine Allergy PT UNSURE Verified 12/13/23 09:24 OF REACTION diazepam (From Valium) Allergy PT UNSURE Verified 12/13/23 09:24 OF REACTION diphenhydramine (From Allergy Itching Verified 12/13/23 09:24 Benadryl) gabapentin Allergy PT UNSURE Verified 12/13/23 09:24 OF REACTION indomethacin (From Indocin) Allergy PT UNSURE Verified 12/13/23 09:24 OF REACTION Iodinated Contrast Media Allergy PT UNSURE Verified 12/13/23 09:24 OF REACTION methocarbamol Allergy PT UNSURE Verified 12/13/23 09:24 OF REACTION NSAIDS (Non-Steroidal Allergy PT UNSURE Verified 12/13/23 09:24 Anti-Inflamma OF REACTION Penicillins Allergy Anaphylaxis Verified 12/13/23 09:24 pregabalin Allergy Nausea/Vom/ Verified 12/13/23 09:24 Diarrhea promethazine (From Phenergan) Allergy PT UNSURE Verified 12/13/23 09:24 OF REACTION sulfacetamide (From Allergy PT UNSURE Verified 12/13/23 09:24 Sulfamide) OF REACTION sumatriptan Allergy PT UNSURE Verified 12/13/23 09:24 OF REACTION tramadol Allergy PT UNSURE Verified 12/13/23 09:24 OF REACTION Social History Smoking Status: Never smoker EXAM Physical Exam Const Vital Signs: 12/13/23 09:25 12/13/23 09:54 Temperature 95.7 F L 98 F Temperature Source Temporal Pulse Rate 76 81 Respiratory Rate 16 18 Blood Pressure 119/59 L 119/68 Blood Pressure Mean 79 85 Pulse Ox 98 98 Oxygen Delivery Method Room Air MDM MDM MDM Narrative Medical decision making narrative: HISTORY OF PRESENT ILLNESS: 73-year-old female presents with headache. Notes chemo 1 week ago. Denies falls or head trauma. Patient denies sudden onset or thunderclap headache, denies maximal intensity within 1 minute, vomiting, neck pain, stiffness, changes in vision, fever, history malignancy, syncope, or seizures associated with headache. REVIEW OF SYSTEMS: Pertinent positives: Headache Pertinent negatives: Numbness, tingling, loss sensation, loss of vision, difficulty swallowing, slurred speech, facial drooping, neck stiffness, fever PHYSICAL EXAM: Nursing triage notes reviewed, Vital signs reviewed Constitutional: please see mdm HENT: MMM Eyes: Pupils equal round and reactive to light, Extraocular muscles intact Neck: No stridor, no JVD, full neck ROM Lungs: Clear to auscultation, No wheezing or rales. No increased work of breathing, no conversational dyspnea, no accessory muscle use, no nasal flaring. No respiratory distress noted Heart: Regular rate and rhythm, No murmurs, No rubs and No gallops, 2+ distal pulses (radial, femoral, posterior tibial) in all extremities Abdomen: Soft, there is no tenderness, rigidity, rebound or guarding, no obvious peritoneal signs, no palpable pulsatile abdominal masses, no auscultated abdominal bruit : No CVAT Extremities: No edema Neuro: Alert and oriented x3, neuro exam at baseline, cranial nerves II through XII are intact. No pain with extraocular muscle movement. There is negative test of skew. 5 of 5 strength in upper and lower extremities in flexion extension. Intact sensation to light touch in upper and lower extremity dermatomes. No truncal or extremity ataxia. No dysdiadochokinesia. Normal gait. 2+ reflexes in upper and lower extremities. No meningeal signs. Negative Babinski. NIH of 0. Skin: No rash or lesions noted MEDICAL DECISION MAKING: Chief Complaint: Headache External records reviewed: Imaging reviewed: CT scan of the head shows mild cortical atrophy and minor periventricular matter ischemic changes Factors affecting care: History of migraines Social determinants of health: Denies drugs History obtained from others: none Consults: none [facility] Narrative: The patient was hemodynamically stable, afebrile and nontoxic-appearing. Nonfocal neuroexam. I considered the following differential diagnosis: Brain mass, ICH, meningitis I offered the patient [facility] imaging given advanced age, headache and history of breast cancer concern for metastases. Patient understood risk and benefits was alert and orient x 3 displayed capacity to make own medical decisions. She decided to forego CT scan at this time. I offered IV fluids, IV antimigraine medication. Patient opted for oral Fioricet and prescription Fioricet instead. She states she has a neurology appointment in the next several weeks as she intends to keep. Strict return precautions were discussed. Patient was discharged in stable condition The patient and/or family, caregivers express understanding. The patient and/or family, caregivers agrees with the plan. Shared decision making: I will have a discussion with the patient and or visitors regarding risk/benefits of further testing or admission. They will be made aware of of the risk/benefits inherent in this decision they will be given the opportunity to voice understanding. Total critical care time today provided was at least 0 minutes. This excludes separately billable procedures. Critical care time (if documented) is secondary to the patient having high probability of clinically significant/life threatening deterioration in the patient's condition which required my urgent intervention. Impression: 1. Headache 2. History of migraines Dispo: Discharge home This note was generated with [employer] dictation software. It may contain incorrect words, spelling, and punctuation that were not noted in review of the chart prior to signing. Discharge Plan Triage Chief Complaint: Headache ED Provider: Josh Álvarez Dx/Rx/DC Orders Instructions: ED Headache Unspecified Prescriptions: New sewmeqdcri-vqccvdmfgzich-vvkh [Fioricet] 50-300-40 mg capsule 1 cap PO Q6H PRN (Reason: headache) Qty: 60 0RF No Action nufddsokyn-jfosjdhankwwo-uffm [Fioricet] 50-300-40 mg capsule 1 cap PO Q8H PRN (Reason: headache) Qty: 20 0RF [facility]Primary [facility] Provider] - Activity Restrictions/Additional Instructions: Thank you for trusting us with your care today! Please take Fioricet as needed every 4 hours. Please return to the emergency department if your symptoms change or worsen. Specifically if you develop visual changes, slurred speech, loss of movement or sensation in your arms or legs. Please follow with your primary care physician for further outpatient evaluation and management. Print Language: Indian Disposition Disposition: Home, Self Care Discharge Date/Time: 12/13/23 09:54
[2023-12-13 09:54] VITALS: BP 119/68; PULSE 81; RESP 18; TEMP 36.6; O2SAT 98
== END 2023-12-13 09:54 | disposition home or self-care (01) ==
LOC: ED 09:47
PROVIDERS: Emergency Provider Emergency Medicine; Visit Provider Emergency Medicine
DX: R51.9 Headache, unspecified (principal)
CPT/HCPCS: 99282

== ENCOUNTER 2023-12-20 08:17 | Outpatient (RCR) | payer OTHER, SELFPAY ==
[2023-12-12 08:42] LABS: Absolute Lymphocyte Count 0.53 X10^3/uL (0.83-4.51); Absolute Neutrophil Count 0.5 X10^3/uL (2.0-7.7); Basophil# 0.01 X10^3/uL; Basophil% 0.7 % (0-1); Eosinophil# 0.03 X10^3/uL; Eosinophils% 2.1 % (0-5); Hematocrit 27.7 % (37-47); Lymphocyte # 0.53 X10^3/ul (0.83-4.51); Lymphocyte % 37.6 % (19-41); Mean Corp Hgb Conc 32.5 g/dL (32-36); Mean Corpuscular Hgb 29.8 pg (27.0-32.0); Mean Corpuscular Volume 91.7 fL (81-99); Mean Platelet Vol. 12.4 fl (6.2-12.0); Monocyte# 0.27 X10^3/uL; Monocyte% 19.1 % (0-10); NRBC Flagged by Analyzer 0 % (0-5); Neutrophil # 0.52 X10^3/uL (2.7-7.7); POSITIVE COUNT YES; POSITIVE DIFFERENTIAL YES; Platelet Count 68 K/mm3 (150-450); RBC Distribution Width CV 14.3 % (11.6-14.6); RBC Distribution Width SD 47.3 fl (35.1-43.9); Red Blood Count 3.02 M/mm3 (4.2-5.4)
[2023-12-12 09:02] LABS: Differential Indicated SCAN CRITERIA MET; White Blood Count 1.4 K/mm3 (4.4-11.0)
[2023-12-12 09:22] LABS: ALB/GLOB Ratio 1.6 RATIO (0.9-2.4); AST(SGOT) 4 U/L (15-37); Alanine Aminotransfer ALT/SGPT 11 U/L (13-56); Albumin, Serum 3.9 g/dL (3.2-5.0); Alkaline Phosphatase 68 U/L (45-117); Anion Gap 7 (5-15); BUN 12 mg/dL (7-18); BUN/Creat Ratio 16.4 RATIO (10-20); Calcium,Total 8.7 mg/dL (8.5-10.1); Chloride 107 mmol/L (98-107); Creatinine, Serum 0.73 mg/dL (0.55-1.02); EST Glomerular Filtration Rate 83 mL/min (>60); Est Glom Filt Rate - Afr Amer 101 mL/min (>60); Globulin 2.5 g/dL (2.2-4.2); Glucose 109 mg/dL (74-106); Potassium 3.1 mmol/L (3.5-5.1); Protein, Total 6.4 g/dL (6.4-8.2); Sodium Level 139 mmol/L (136-145)
[2023-12-12 09:46] LABS: Platelet Estimate MOD DEC (ADEQ)
[2023-12-12 13:26] LABS: Pathologist Review Reviewed
[2023-12-20 09:50] LABS: Absolute Lymphocyte Count 0.67 X10^3/uL (0.83-4.51); Absolute Neutrophil Count 3.8 X10^3/uL (2.0-7.7); Basophil# 0.02 X10^3/uL; Basophil% 0.4 % (0-1); Eosinophil# 0.05 X10^3/uL; Hematocrit 31.5 % (37-47); Hemoglobin 10.1 g/dL (12.0-15.0); Lymphocyte # 0.67 X10^3/ul (0.83-4.51); Lymphocyte % 13.6 % (19-41); Mean Corp Hgb Conc 32.1 g/dL (32-36); Mean Corpuscular Hgb 30.6 pg (27.0-32.0); Mean Corpuscular Volume 95.5 fL (81-99); Mean Platelet Vol. 12.5 fl (6.2-12.0); Monocyte# 0.28 X10^3/uL; Monocyte% 5.7 % (0-10); NRBC Flagged by Analyzer 0 % (0-5); Neutrophil # 3.75 X10^3/uL (2.7-7.7); Neutrophil % 75.9 % (47-70); POSITIVE COUNT YES; Platelet Count 77 K/mm3 (150-450); RBC Distribution Width CV 15.5 % (11.6-14.6); RBC Distribution Width SD 53.4 fl (35.1-43.9); White Blood Count 4.9 K/mm3 (4.4-11.0)
[2023-12-20 10:23] LABS: ALB/GLOB Ratio 1.3 RATIO (0.9-2.4); AST(SGOT) 9 U/L (15-37); Alanine Aminotransfer ALT/SGPT 13 U/L (13-56); Albumin, Serum 3.6 g/dL (3.2-5.0); Alkaline Phosphatase 63 U/L (45-117); Anion Gap 6 (5-15); BUN 15 mg/dL (7-18); BUN/Creat Ratio 19.4 RATIO (10-20); Calcium,Total 8.8 mg/dL (8.5-10.1); Chloride 113 mmol/L (98-107); Creatinine, Serum 0.77 mg/dL (0.55-1.02); EST Glomerular Filtration Rate 78 mL/min (>60); Est Glom Filt Rate - Afr Amer 95 mL/min (>60); Globulin 2.7 g/dL (2.2-4.2); Glucose 101 mg/dL (74-106); Potassium 4.4 mmol/L (3.5-5.1); Protein, Total 6.3 g/dL (6.4-8.2); Sodium Level 141 mmol/L (136-145)
== END 2023-12-20 18:00 | disposition home or self-care (01) ==
LOC: LAB 08:17
PROVIDERS: Referring Provider Internal Medicine; Visit Provider Internal Medicine
DX: D69.6 Thrombocytopenia, unspecified (principal); C50.911 Malignant neoplasm of unspecified site of right female breast
CPT/HCPCS: 36415; 80053; 85025

== ENCOUNTER 2024-04-25 15:54 | Emergency (ER) | payer OTHER, SELFPAY ==
[2024-04-25 15:55] VITALS: BP 153/71; PULSE 76; RESP 16; TEMP 36.1; O2SAT 100; BMI 27.6
--- NOTE | 2024-04-25 16:53 | EDS_ITS ---
HPI History of Present Illness Chief Complaint: Headache Informant: patient [facility] Home Medications ?Medication ?Instructions ?Recorded ?Last Taken ?Type ryuhflcprt-sjktzmqxlmtvg-fudwludk 1 cap PO Q8H PRN headache #20 caps 10/24/23 Unknown Rx 50 mg-300 mg-40 mg capsule (Fioricet) evjegmvoqw-zxcgrdjxogwsc-ggndvgcj 1 cap PO Q6H PRN headache #60 caps 12/13/23 Unknown Rx 50 mg-300 mg-40 mg capsule (Fioricet) bxqwxmdhgo-hefwpkqfblaow-zqxafqfk 1 cap PO TID PRN pain #30 caps 04/25/24 Unknown Rx 50 mg-300 mg-40 mg capsule (Fioricet) Allergy/AdvReac Type Severity Reaction Status Date / Time cyclobenzaprine Allergy PT UNSURE Verified 12/13/23 09:24 OF REACTION diazepam (From Valium) Allergy PT UNSURE Verified 12/13/23 09:24 OF REACTION diphenhydramine (From Allergy Itching Verified 12/13/23 09:24 Benadryl) gabapentin Allergy PT UNSURE Verified 12/13/23 09:24 OF REACTION indomethacin (From Indocin) Allergy PT UNSURE Verified 12/13/23 09:24 OF REACTION Iodinated Contrast Media Allergy PT UNSURE Verified 12/13/23 09:24 OF REACTION methocarbamol Allergy PT UNSURE Verified 12/13/23 09:24 OF REACTION NSAIDS (Non-Steroidal Allergy PT UNSURE Verified 12/13/23 09:24 Anti-Inflamma OF REACTION Penicillins Allergy Anaphylaxis Verified 12/13/23 09:24 pregabalin Allergy Nausea/Vom/ Verified 12/13/23 09:24 Diarrhea promethazine (From Phenergan) Allergy PT UNSURE Verified 12/13/23 09:24 OF REACTION sulfacetamide (From Allergy PT UNSURE Verified 12/13/23 09:24 Sulfamide) OF REACTION sumatriptan Allergy PT UNSURE Verified 12/13/23 09:24 OF REACTION tramadol Allergy PT UNSURE Verified 12/13/23 09:24 OF REACTION Social History Smoking Status: Never smoker EXAM Physical Exam Const Vital Signs: 04/25/24 15:55 Temperature 96.9 F L Temperature Source Temporal Pulse Rate 76 Respiratory Rate 16 Blood Pressure 153/71 H Blood Pressure Mean 98 Pulse Ox 100 Oxygen Delivery Method Room Air Discharge Plan Triage Chief Complaint: Headache ED Provider: Darin Charles Dx/Rx/DC Orders Clinical Impression: Migraine headache Instructions: ED Headache Unspecified Prescriptions: New zelaybmoxi-vmvlmqzmppawj-xklx [Fioricet] 50-300-40 mg capsule 1 cap PO TID PRN (Reason: pain) Qty: 30 0RF No Action wbwxstpttm-wcrlablmqosgy-ywrq [Fioricet] 50-300-40 mg capsule 1 cap PO Q8H PRN (Reason: headache) Qty: 20 0RF dfavvrxhfx-kscfjvhxcsfdx-zdey [Fioricet] 50-300-40 mg capsule 1 cap PO Q6H PRN (Reason: headache) Qty: 60 0RF [facility] [facility] [Primary [facility] Provider] - As soon as possible Print Language: [place] Disposition Disposition: Home, Self Care
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
[2024-04-25 16:56] VITALS: BP 144/78; PULSE 64; RESP 18; TEMP 36.6; O2SAT 99
== END 2024-04-25 17:01 | disposition home or self-care (01) ==
LOC: ED 17:00
PROVIDERS: Emergency Provider Emergency Medicine; Referring Provider Emergency Medicine; Visit Provider Emergency Medicine
DX: G43.909 Migraine, unspecified, not intractable, without status migrainosus (principal)
CPT/HCPCS: 99282

== ENCOUNTER 2024-07-07 12:05 | Emergency (ER) | payer OTHER, SELFPAY ==
[2024-07-07 12:05] VITALS: BP 146/71; PULSE 82; RESP 16; TEMP 35.9; O2SAT 99
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
[2024-07-07 12:50] VITALS: BMI 27.5
[2024-07-07 12:51] VITALS: BP 139/80; PULSE 86; RESP 18; TEMP 36.4; O2SAT 96
== END 2024-07-07 12:52 | disposition home or self-care (01) ==
PROVIDERS: Emergency Provider Emergency Medicine; Visit Provider Emergency Medicine
DX: G43.909 Migraine, unspecified, not intractable, without status migrainosus (principal)
CPT/HCPCS: 99282

== ENCOUNTER → 2024-07-18 | Outpatient (CLI) | payer OTHER, SELFPAY ==
[2024-07-18 15:15] LABS: Absolute Lymphocyte Count 0.68 X10^3/uL (0.83-4.51); Absolute Neutrophil Count 4.9 X10^3/uL (2.0-7.7); Basophil# 0.01 X10^3/uL; Basophil% 0.2 % (0-1); Eosinophil# 0.08 X10^3/uL; Eosinophils% 1.3 % (0-5); Hematocrit 31.1 % (37-47); Hemoglobin 9.6 g/dL (12.0-15.0); Lymphocyte # 0.68 X10^3/ul (0.83-4.51); Lymphocyte % 11.4 % (19-41); Mean Corp Hgb Conc 30.9 g/dL (32-36); Mean Corpuscular Hgb 26.2 pg (27.0-32.0); Mean Corpuscular Volume 84.7 fL (81-99); Monocyte# 0.31 X10^3/uL; Monocyte% 5.2 % (0-10); NRBC Flagged by Analyzer 0 % (0-5); Neutrophil # 4.87 X10^3/uL (2.7-7.7); Neutrophil % 81.2 % (47-70); POSITIVE COUNT YES; Platelet Count 64 K/mm3 (150-450); RBC Distribution Width CV 15.2 % (11.6-14.6); RBC Distribution Width SD 46.5 fl (35.1-43.9); Red Blood Count 3.67 M/mm3 (4.2-5.4)
[2024-07-18 15:31] LABS: Vitamin B12 395 pg/mL (211-911)
[2024-07-18 15:38] LABS: ALB/GLOB Ratio 1.5 RATIO (0.9-2.4); AST(SGOT) 3 U/L (15-37); Alanine Aminotransfer ALT/SGPT 15 U/L (13-56); Albumin, Serum 4.1 g/dL (3.2-5.0); Alkaline Phosphatase 77 U/L (45-117); Anion Gap 6 (5-15); BUN 17 mg/dL (7-18); BUN/Creat Ratio 21.9 RATIO (10-20); Calcium,Total 8.8 mg/dL (8.5-10.1); Chloride 110 mmol/L (98-107); Creatinine, Serum 0.78 mg/dL (0.55-1.02); EST Glomerular Filtration Rate 78 mL/min (>60); Est Glom Filt Rate - Afr Amer 94 mL/min (>60); Ferritin 10 ng/mL (8-252); Globulin 2.7 g/dL (2.2-4.2); Glucose 91 mg/dL (74-106); Iron 51 ug/dL (50-170); Iron Binding Capacity,Total 432 ug/dL (250-450); Magnesium 1.9 mg/dL (1.6-2.6); Potassium 4.3 mmol/L (3.5-5.1); Protein, Total 6.8 g/dL (6.4-8.2); Rheumatoid Factor < 10.0 IU/mL (<15); Sodium Level 141 mmol/L (136-145)
[2024-07-18 15:49] LABS: Erythrocyte Sedimentation Rate < 1 mm/hr (0-30)
[2024-07-18 17:46] LABS: Hemoglobin A1c 4.8 % (3.8-5.6)
[2024-07-20 14:08] LABS: CCP IgG Antibodies 2 units (0-19)
[2024-07-23 16:08] LABS: ANTINUCLEAR ANTIBODIES DIRECT Negative (Negative)
== END | disposition home or self-care (01) ==
LOC: MFPLAB 12:19
PROVIDERS: Referring Provider Family Medicine; Visit Provider Family Medicine
DX: E87.6 Hypokalemia (principal); D64.9 Anemia, unspecified; R73.9 Hyperglycemia, unspecified
CPT/HCPCS: 36415; 80053; 82607; 82728; 82746; 83036; 83540; 83550; 83735; 85025; 85652; 86038; 86200; 86431

== ENCOUNTER → 2024-10-09 | Outpatient (CLI) | payer MEDICARE, SELFPAY ==
--- NOTE | 2024-10-09 14:30 | RAD_ITS ---
PROCEDURE: LUMBAR SPINE 2 OR 3 VIEWS 10/09/2024 REASON FOR EXAM: LOW BACK PAIN TECHNIQUE: 2 view(s) of the lumbar spine COMPARISON: None available FINDINGS: Mild left levo curvature, scoliosis of the lumbar spine. 4 wvv-wvv-finzpje lumbar vertebral body types are identified for nomenclature purposes. No fracture or malalignment. Rightward disc space narrowing appears ltti-ki-oragrbmx at L2-3 on the AP view. Spondylosis/discogenic change appears xqrhjnre-mk-pqqvpp at L3-4. Severe appearing spondylosis/discogenic change at L4-S1. Aortoiliac vascular calcification. Status post cholecystectomy. RAD/Lumbar Spine 2 or 3 Views IMPRESSION: Leftward curvature, scoliosis with multilevel spondylosis/discogenic change as above. Reading Location: [id number]
--- NOTE | 2024-10-09 14:30 | RAD_ITS ---
PROCEDURE: THORACIC SPINE 2 VIEWS 10/09/2024 REASON FOR EXAM: PAIN IN THORACIC SPINE TECHNIQUE: AP and lateral views of the thoracic spine. COMPARISON: None. FINDINGS: Vertebrae: Vertebral body heights are maintained. Discs: Multilevel loss of disc height in keeping with patient's age. Alignment: Normal dorsal kyphosis. Other: RAD/Thoracic Spine 2 Views IMPRESSION: No acute process in the thoracic spine. Reading [facility]
[2024-10-09 16:03] LABS: Absolute Lymphocyte Count 0.77 X10^3/uL (0.83-4.51); Absolute Neutrophil Count 4.6 X10^3/uL (2.0-7.7); Basophil# 0.01 X10^3/uL; Basophil% 0.2 % (0-1); Eosinophil# 0.14 X10^3/uL; Eosinophils% 2.4 % (0-5); Hematocrit 30.8 % (37-47); Hemoglobin 9.9 g/dL (12.0-15.0); Immature Platelet Fraction 13.3 % (1.0-7.9); Lymphocyte # 0.77 X10^3/ul (0.83-4.51); Mean Corp Hgb Conc 32.1 g/dL (32-36); Mean Corpuscular Hgb 26.8 pg (27.0-32.0); Mean Corpuscular Volume 83.5 fL (81-99); Mean Platelet Vol. 13.4 fl (6.2-12.0); Monocyte# 0.41 X10^3/uL; Monocyte% 6.9 % (0-10); NRBC Flagged by Analyzer 0 % (0-5); Neutrophil # 4.57 X10^3/uL (2.7-7.7); Neutrophil % 76.8 % (47-70); POSITIVE COUNT YES; POSITIVE MORPHOLOGY YES; Platelet Count 63 K/mm3 (150-450); RBC Distribution Width CV 15.9 % (11.6-14.6); RBC Distribution Width SD 47.4 fl (35.1-43.9); RET-HE 29.5 pg (30-35); Red Blood Count 3.69 M/mm3 (4.2-5.4); Reticulocyte Count 2.92 % (0.5-1.5); White Blood Count 5.9 K/mm3 (4.4-11.0)
[2024-10-09 17:03] LABS: Differential Indicated SCAN CRITERIA MET
[2024-10-09 20:14] LABS: Anisocytosis 2+; Atypical Lymphocyte 1+ %; Polychromasia RARE
== END | disposition home or self-care (01) ==
PROVIDERS: Referring Provider Family Medicine; Visit Provider Family Medicine
DX: D64.9 Anemia, unspecified (principal); M54.50 Low back pain, unspecified; M54.6 Pain in thoracic spine
CPT/HCPCS: 36415; 72070; 72100; 85025; 85045

== ENCOUNTER 2024-11-04 16:56 | Emergency (ER) | payer OTHER, SELFPAY ==
[2024-11-04 16:58] VITALS: BP 122/92; PULSE 89; RESP 18; TEMP 36.9; O2SAT 97
[2024-11-04 17:01] VITALS: BP 122/92; PULSE 89; RESP 18; TEMP 36.9; O2SAT 97; BMI 26.2
--- NOTE | 2024-11-04 18:15 | EDS_ITS ---
<Statement entered by Arian Beatty, DO - 11/04/24 21:43> Patient was seen and examined with physician assistant drafter:
--- NOTE | 2024-11-04 18:15 | EX.ED.UPPERE ---
HPI History of Present Illness Chief Complaint: Upper Extremity Injury Narrative Narrative: Patient presenting today due to concerns for burning sensation to his right hand that started last night. She had a right carpal tunnel surgery and third finger trigger release performed by Dr. Bro at the OR on . She has had no fevers, chills, nausea, vomiting postop. The hand is currently bandaged with gauze. [facility] Medical History Thrombocytopenia Home Medications ?Medication ?Instructions ?Recorded ?Last Taken ?Type uurreczcbf-qtdgawfxwoyyd-xnykroew 1 cap PO Q8H PRN headache #20 caps 10/24/23 Unknown Rx 50 mg-300 mg-40 mg capsule (Fioricet) rlnbqoorxp-qlmlcochynmpf-xxyjkidf 1 cap PO Q6H PRN headache #60 caps 12/13/23 Unknown Rx 50 mg-300 mg-40 mg capsule (Fioricet) dbpqmhfhem-tnnmugvzngqmx-spekbuwz 1 cap PO TID PRN pain #30 caps 04/25/24 Unknown Rx 50 mg-300 mg-40 mg capsule (Fioricet) butalbital 50 mg-acetaminophen 300 1 cap PO Q6H PRN PRN pain 7 days 07/07/24 Unknown Rx mg-caffeine 40 mg-codeine 30 mg cap #28 caps Allergy/AdvReac Type Severity Reaction Status Date / Time cyclobenzaprine Allergy PT UNSURE Verified 11/04/24 17:02 OF REACTION diazepam (From Valium) Allergy PT UNSURE Verified 11/04/24 17:02 OF REACTION diphenhydramine (From Allergy Itching Verified 11/04/24 17:02 Benadryl) gabapentin Allergy PT UNSURE Verified 11/04/24 17:02 OF REACTION indomethacin (From Indocin) Allergy PT UNSURE Verified 11/04/24 17:02 OF REACTION Iodinated Contrast Media Allergy PT UNSURE Verified 11/04/24 17:02 OF REACTION methocarbamol Allergy PT UNSURE Verified 11/04/24 17:02 OF REACTION NSAIDS (Non-Steroidal Allergy PT UNSURE Verified 11/04/24 17:02 Anti-Inflamma OF REACTION Penicillins Allergy Anaphylaxis Verified 11/04/24 17:02 pregabalin Allergy Nausea/Vom/ Verified 11/04/24 17:02 Diarrhea promethazine (From Phenergan) Allergy PT UNSURE Verified 11/04/24 17:02 OF REACTION sulfacetamide (From Allergy PT UNSURE Verified 11/04/24 17:02 Sulfamide) OF REACTION sumatriptan Allergy PT UNSURE Verified 11/04/24 17:02 OF REACTION tramadol Allergy PT UNSURE Verified 11/04/24 17:02 OF REACTION Social History Smoking Status: Never smoker ROS ROS ED Constitutional Constitutional ED: Denies chills or fever(s) Cardiovascular Cardiovascular: Denies chest pain Respiratory/Chest Respiratory/Chest: Denies dyspnea Gastrointestinal Gastrointestinal: Denies nausea or vomiting Musculoskeletal Musculoskeletal: Reports arthralgias Neurologic Neurologic: Denies paresthesias EXAM Physical Exam Const Vital Signs: 11/04/24 16:58 11/04/24 17:01 Temperature 98.4 F 98.4 F Temperature Source Oral Oral Pulse Rate 89 89 Respiratory Rate 18 18 Blood Pressure 122/92 H 122/92 H Blood Pressure Mean 102 102 Pulse Ox 97 97 Oxygen Delivery Method Room Air Room Air Positive well nourished, well developed and no apparent distress General Appearance ED: well developed HEENT Reports normocephalic and head/scalp atraumatic Mouth ED: Yes moist mucous membranes normal Eyes PERRL and EOMs intact bilaterally Neck full ROM and supple Chest Wall inspection of chest normal Resp normal respiratory effort and clear to auscultation bilaterally Cardio regular rate and regular rhythm Back/Spine normal ROM and normal to inspection Extremity normal to inspection and full ROM Extremity Narrative: 2 surgical incisions to the right hand without any dehiscence, purulent discharge, warmth, erythema, or signs of infection. Right radial pulse 2+, good cap refill, sensation intact. Minimal bruising to the right hand. Neuro oriented x3, CN's II-XII intact bilaterally, moves all extremities, no focal motor deficits and no sensory deficits noted Sensorium / Orientation: awake and alert Psych mental status grossly normal and thought process normal Skin no rashes or lesions noted and no wounds MDM MDM MDM Narrative Medical decision making narrative: Patient presenting today due to a burning sensation to her right hand that started last night. She recently had a carpal tunnel surgery and had trigger finger release to the third digit on by Dr. Bro at the OR. She has concerns for infection but did not want to remove the dressing on her own. I was able to easily remove the dressing, she has 2 intact surgical incisions with sutures in place, no dehiscence, warmth, purulence, or signs of infection. Right upper extremity is neurovascularly intact. She has been reassured. She was given something here for pain. The hand was rebandaged. I suspect her symptoms are related to postop pain, I recommend she follow-up with her surgeon. She will be discharged home in stable condition. Discharge Plan Triage Chief Complaint: Upper Extremity Injury Other Complaint: Wound Check ED Midlevel Provider: Margarita Devlin ED Provider: Arian Beatty Dx/Rx/DC Orders Clinical Impression: Encounter for postoperative wound check Instructions: ED Post Op Wound Check, Pain Prescriptions: No Action dxfbphqzsh-uutskgoocebqq-wvzm [Fioricet] 50-300-40 mg capsule 1 cap PO TID PRN (Reason: pain) Qty: 30 0RF hrniulnuoq-xafqjonhkg-csd-cod 28-369-99-30 mg capsule 1 cap PO Q6H PRN PRN (Reason: pain) 7 Days Qty: 28 0RF drlklmasvn-zrucnkrpfwrgx-hczs [Fioricet] 50-300-40 mg capsule 1 cap PO Q8H PRN (Reason: headache) Qty: 20 0RF etlplkndzq-tenpkktaiqjux-qgpg [Fioricet] 50-300-40 mg capsule 1 cap PO Q6H PRN (Reason: headache) Qty: 60 0RF Primary Care Provider: [facility] Provider[facility] - Activity Restrictions/Additional Instructions: Follow-up with your surgeon and return for any other concerns, fevers, or chills. Print Language: Estonian Disposition Disposition: Home, Self Care Discharge Date/Time: 11/04/24 18:30
[2024-11-04] MEDS: HYDROcodone Bitartrate/Apap 5/325 Tablet PO (18:25)
== END 2024-11-04 18:30 | disposition home or self-care (01) ==
PROVIDERS: Emergency Provider Emergency Medicine; Visit Provider Emergency Medicine
DX: Z51.89 Encounter for other specified aftercare (principal); G89.18 Other acute postprocedural pain
CPT/HCPCS: 99283

== ENCOUNTER → 2024-11-15 | Outpatient (CLI) | payer MEDICARE, SELFPAY | END | disposition home or self-care (01) | LOC: MFPLAB 12:10 | PROVIDERS: PCP Family Medicine; Referring Provider Family Medicine; Visit Provider Family Medicine | DX: G62.9 Polyneuropathy, unspecified (principal) | CPT/HCPCS: 36415; 84207; 84425 ==

== ENCOUNTER → 2024-11-27 | Outpatient (CLI) | payer MEDICARE, SELFPAY ==
[2024-11-27 18:04] LABS: Hematocrit 30.3 % (37-47); Hemoglobin 9.6 g/dL (12.0-15.0); Mean Corp Hgb Conc 31.7 g/dL (32-36); Mean Corpuscular Hgb 27.6 pg (27.0-32.0); Mean Corpuscular Volume 87.1 fL (81-99); POSITIVE COUNT YES; Platelet Count 66 K/mm3 (150-450); RBC Distribution Width CV 15.9 % (11.6-14.6); RBC Distribution Width SD 49.6 fl (35.1-43.9); Red Blood Count 3.48 M/mm3 (4.2-5.4); White Blood Count 4.8 K/mm3 (4.4-11.0)
== END | disposition home or self-care (01) ==
LOC: MFPLAB 16:49
PROVIDERS: PCP Family Medicine; Referring Provider Family Medicine; Visit Provider Family Medicine
DX: R07.9 Chest pain, unspecified (principal)
CPT/HCPCS: 36415; 85027

== ENCOUNTER 2025-03-16 12:22 | Emergency (ER) | payer OTHER, SELFPAY ==
[2025-03-16 12:23] VITALS: BP 127/67; PULSE 82; RESP 18; TEMP 37.1; O2SAT 98; BMI 27.0
--- NOTE | 2025-03-16 12:47 | EX.ED.VIS.HA ---
HPI History of Present Illness Chief Complaint: Headache Informant: patient Narrative Narrative: 74-year-old female presenting with a migraine that has been there for 2 days. She states when it started it was similar to prior, gradual onset without a thunderclap, of pain in the right side of her head and forehead, progressing to the point of getting on or off and seeing some halos, and then worsening of the headache and now vomiting. She states she has these headaches every month or 2 ever since she was in high school when she was in [place] and was injured by an IED. She states she was in [facility] for a while, and they told her she would likely deal with these headaches forever. She has tried multiple oral prophylactic medications in the past without help. [facility] but has not seen anyone yet. [facility] Medical History GERD (gastroesophageal reflux disease) Polycystic ovary Osteoarthritis Neuropathy Murmur, cardiac High calcium levels Frequent headaches Carpal tunnel syndrome Cataracts, both eyes Bone cancer Breast cyst Low platelet count Back problem Arthritis Anemia Thrombocytopenia Home Medications ?Medication ?Instructions ?Recorded ?Last Taken ?Type yomecgjoqy-vwfgbpoheetkg-pjywpgne 1 cap PO Q8H PRN headache #20 caps 10/24/23 Unknown Rx 50 mg-300 mg-40 mg capsule (Fioricet) ykikmbrgkc-jdahjcfjjrkvn-qvxzczub 1 cap PO Q6H PRN headache #60 caps 12/13/23 Unknown Rx 50 mg-300 mg-40 mg capsule (Fioricet) butalbital 50 mg-acetaminophen 300 1 cap PO Q6H PRN PRN pain 7 days 07/07/24 Unknown Rx mg-caffeine 40 mg-codeine 30 mg cap #28 caps ntafaxfpqd-mogsvouixnmnm-jyiseenz 1 cap PO TID PRN pain #15 caps 03/16/25 Unknown Rx 50 mg-300 mg-40 mg capsule (Fioricet) Allergy/AdvReac Type Severity Reaction Status Date / Time cyclobenzaprine Allergy PT UNSURE Verified 03/16/25 12:25 OF REACTION diazepam (From Valium) Allergy PT UNSURE Verified 03/16/25 12:25 OF REACTION diphenhydramine (From Allergy Itching Verified 03/16/25 12:25 Benadryl) gabapentin Allergy PT UNSURE Verified 03/16/25 12:25 OF REACTION indomethacin (From Indocin) Allergy PT UNSURE Verified 03/16/25 12:25 OF REACTION Iodinated Contrast Media Allergy PT UNSURE Verified 03/16/25 12:25 OF REACTION methocarbamol Allergy PT UNSURE Verified 03/16/25 12:25 OF REACTION NSAIDS (Non-Steroidal Allergy PT UNSURE Verified 03/16/25 12:25 Anti-Inflamma OF REACTION Penicillins Allergy Anaphylaxis Verified 03/16/25 12:25 pregabalin Allergy Nausea/Vom/ Verified 03/16/25 12:25 Diarrhea promethazine (From Phenergan) Allergy PT UNSURE Verified 03/16/25 12:25 OF REACTION sulfacetamide (From Allergy PT UNSURE Verified 03/16/25 12:25 Sulfamide) OF REACTION sumatriptan Allergy PT UNSURE Verified 03/16/25 12:25 OF REACTION tramadol Allergy PT UNSURE Verified 03/16/25 12:25 OF REACTION Surgical History History of cholecystectomy Social History Smoking Status: Never smoker alcohol intake: never substance use type: does not use ROS ROS ED Constitutional Constitutional ED: Denies chills or fever(s) Eyes Eyes: Denies change in vision or diplopia ENT ENT ED: Denies rhinorrhea or sore throat Cardiovascular Cardiovascular: Denies chest pain or palpitations Respiratory/Chest Respiratory/Chest: Denies cough or dyspnea Gastrointestinal Gastrointestinal: Reports nausea and vomiting; Denies abdominal pain or diarrhea Genitourinary Genitourinary ED: Denies dysuria or hematuria Musculoskeletal Musculoskeletal: Denies back pain or neck pain Integumentary Denies abscess or rash Neurologic Neurologic: Reports headache(s); Denies paresthesias or weakness Psychiatric Psychiatric: Denies anxiety or suicidal thoughts EXAM Physical Exam Const Vital Signs: 03/16/25 12:23 Temperature 98.7 F Temperature Source Oral Pulse Rate 82 Respiratory Rate 18 Blood Pressure 127/67 H Blood Pressure Mean 87 Pulse Ox 98 Oxygen Delivery Method Room Air Positive well nourished and well developed General Appearance ED: well developed and NAD HEENT Reports moist mucous membranes normocephalic and atraumatic Eyes PERRL and EOMs intact bilaterally Neck full ROM, supple and no meningeal signs Resp normal respiratory effort Back/Spine General Back: other FROM Extremity normal to inspection General Extremety ED: Negative for edema, pulses abnormal or tenderness General Extremity: Negative for edema or pulses abnormal Neuro oriented x3, CN's II-XII intact bilaterally and no sensory deficits noted Neuro Narrative: nml gait Sensorium / Orientation: awake and alert Motor Exam: strength 5/5 throughout Skin no rashes or lesions noted and no wounds MDM MDM MDM Narrative Medical decision making narrative: Patient additionally states she is recently diagnosed with some type of bone cancer. However, although she has a history of thrombocytopenia, this headache seems to have started with an aura just like her prior migraines and she has had the symptoms to the point of vomiting before. Therefore I agree with her I do not think she needs a CT of the head. I offered IV placement along with medications for migraine, she does not want that, she drove, she just wants a prescription and she states Fioricet has helped in the past. I advised her that we do not commonly use Fioricet nowadays for migraines especially, however she states that she has tried many medications in the past and prophylactics, and she knows that works and she is just looking for some relief right now with a prescription and a referral to neurology. Discharge Plan Triage Chief Complaint: Headache ED Provider: Cristino Nixon Dx/Rx/DC Orders Clinical Impression: Migraine headache with aura Instructions: ED, Migraine (Classical) Prescriptions: Continued sofpoyddad-kuxlymigtczty-ubcx [Fioricet] 50-300-40 mg capsule 1 cap PO TID PRN (Reason: pain) Qty: 15 0RF No Action xzslkhjike-uxccspnxoh-ics-cod 18-779-84-30 mg capsule 1 cap PO Q6H PRN PRN (Reason: pain) 7 Days Qty: 28 0RF iqavopnrhm-xmykrqstntnqd-lmle [Fioricet] 50-300-40 mg capsule 1 cap PO Q8H PRN (Reason: headache) Qty: 20 0RF kwzrgsufwm-fcyfbmyetsvzu-mkwq [Fioricet] 50-300-40 mg capsule 1 cap PO Q6H PRN (Reason: headache) Qty: 60 0RF Primary Care Provider: Surinder Castillo Referrals: Neeraj Montana MD [Non-Staff -Ordering Privileges] - Wenceslao Lott MD [Non-Staff] - Activity Restrictions/Additional Instructions: May try either of the above neurologists Print Language: Mongolian Disposition Disposition: Home, Self Care
[2025-03-16 13:18] VITALS: BP 127/67; PULSE 82; RESP 18; TEMP 37.1; O2SAT 98
== END 2025-03-16 13:18 | disposition home or self-care (01) ==
LOC: ED 13:03
PROVIDERS: Emergency Provider Emergency Medicine; PCP Family Medicine; Visit Provider Emergency Medicine
DX: G43.109 Migraine with aura, not intractable, without status migrainosus (principal); R11.2 Nausea with vomiting, unspecified; Z79.899 Other long term (current) drug therapy
CPT/HCPCS: 99282

== ENCOUNTER → 2025-03-20 | Outpatient (CLI) | payer MEDICARE, OTHER, SELFPAY ==
--- NOTE | 2025-03-20 16:56 | RAD_ITS ---
PROCEDURE: FOOT MIN 3 VIEWS 03/20/2025 REASON FOR EXAM: PAIN TECHNIQUE: Procedure Code: RADFO Modality: DX Procedure: FOOT MIN 3 VIEWS Laterality: Right foot COMPARISON: None FINDINGS: Bones: No fracture is seen. Small plantar spur. Joints: Hallux valgus deformity with osteoarthritis of the 1st metatarsal phalangeal joint. Soft tissues: Soft tissue swelling overlying the 1st metatarsophalangeal joint. Other: RAD/Foot min 3 Views IMPRESSION: Harry valgus deformity with osteoarthritis of the 1st metatarsophalangeal joint. Small calcaneal spur. Reading Location: [facility]
== END | disposition home or self-care (01) ==
PROVIDERS: PCP Family Medicine; Visit Provider Nurse Practitioner Family
DX: M79.673 Pain in unspecified foot (principal)
CPT/HCPCS: 73630

== ENCOUNTER → 2025-03-26 | Outpatient (CLI) | payer MEDICARE, SELFPAY ==
--- NOTE | 2025-03-26 12:52 | RAD_ITS ---
PROCEDURE: THORACIC SPINE 3 VIEWS 03/26/2025 REASON FOR EXAM: DDD Patent in the neck and back. TECHNIQUE: Procedure Code: RADSPT Modality: DX Procedure: THORACIC SPINE 3 VIEWS COMPARISON: None. FINDINGS: Vertebrae: No acute bony abnormalities. Discs: Multilevel disc space narrowing and sclerotic endplates. Alignment: Unremarkable. RAD/Thoracic Spine 3 Views IMPRESSION: No acute bony abnormalities. Multilevel degenerate changes. Reading Location: [id number]
--- NOTE | 2025-03-26 12:52 | RAD_ITS ---
PROCEDURE: LUMBAR SPINE 2 OR 3 VIEWS 03/26/2025 REASON FOR EXAM: DDD TECHNIQUE: Procedure Code: RADSPLL Modality: DX Procedure: LUMBAR SPINE 2 OR 3 VIEWS COMPARISON: October 09, 2024 FINDINGS: Multilevel degenerative disc disease is noted which is fairly similar to the previous study. Similar-appearing levoconvex scoliosis of the lumbar spine. No acute fracture or subluxation. Sacroiliac joints are grossly intact. Adjacent soft tissues are unremarkable. RAD/Lumbar Spine 2 or 3 Views IMPRESSION: Degenerative changes and scoliosis similar to the previous study. Reading Location[facility]
== END | disposition home or self-care (01) ==
LOC: RAD 12:41
PROVIDERS: PCP Family Medicine; Referring Provider Anesthesiology Pain Medicine; Visit Provider Anesthesiology Pain Medicine
DX: M51.369 Other intervertebral disc degeneration, lumbar region without mention of lumbar back pain or lower extremity pain (principal); M51.34 Other intervertebral disc degeneration, thoracic region
CPT/HCPCS: 72072; 72100

== ENCOUNTER → 2025-04-05 | Outpatient (CLI) | payer MEDICARE, SELFPAY ==
--- NOTE | 2025-04-05 11:18 | US_ITS ---
PROCEDURE: EXT NON VASC LIMITED/SOFT TISS 04/05/2025 REASON FOR EXAM: LEFT LOWER LIMB MASS SWELLING TECHNIQUE: Procedure Code: USEXTSOFTLIM Modality: US Procedure: EXT NON VASC LIMITED/SOFT TISS COMPARISON: None FINDINGS: Ultrasonography of the left lower extremity palpable mass and area of swelling was performed. There is a solid, isoechoic, smoothly marginated mass in the subcutaneous tissues at this location measuring 3.4 x 2.8 x 1.0 cm. This mass is wider than it is tall and does not produce any posterior shadowing. It is most compatible with a probable lipoma. US/Ext Non Vasc Limited/Soft Tiss IMPRESSION: The left lower extremity palpable abnormality appears to correspond to a benign -appearing mass which appears to represent a lipoma. If this area does increase in size, a follow-up ultrasound is recommen ded. Reading Location: [id number]
--- NOTE | 2025-04-05 11:18 | US_ITS ---
PROCEDURE: EXT NON VASC LIMITED/SOFT TISS 04/05/2025 REASON FOR EXAM: LEFT LOWER LIMB MASS SWELLING TECHNIQUE: Procedure Code: USEXTSOFTLIM Modality: US Procedure: EXT NON VASC LIMITED/SOFT TISS COMPARISON: None FINDINGS: Ultrasonography of the left lower extremity palpable mass and area of swelling was performed. There is a solid, isoechoic, smoothly marginated mass in the subcutaneous tissues at this location measuring 3.4 x 2.8 x 1.0 cm. This mass is wider than it is tall and does not produce any posterior shadowing. It is most compatible with a probable lipoma. US/Ext Non Vasc Limited/Soft Tiss IMPRESSION: The left lower extremity palpable abnormality appears to correspond to a benign -appearing mass which appears to represent a lipoma. If this area does increase in size, a follow-up ultrasound is recommen ded. Reading Location: [id number]
== END | disposition home or self-care (01) ==
PROVIDERS: PCP Family Medicine; Referring Provider Nurse Practitioner Family; Visit Provider Nurse Practitioner Family
DX: R22.42 Localized swelling, mass and lump, left lower limb (principal)
CPT/HCPCS: 76882

== ENCOUNTER → 2025-04-11 | Outpatient (CLI) | payer MEDICARE, SELFPAY ==
[2025-04-11 19:48] LABS: AST(SGOT) 11 U/L (<=31); Alanine Aminotransfer ALT/SGPT 10 U/L (<=34); Albumin, Serum 4.4 g/dL (3.4-4.8); Alkaline Phosphatase 70 U/L (35-104); Anion Gap 13 (5-15); BUN 20 mg/dL (4-19); BUN/Creat Ratio 21.5 RATIO (10-20); Calcium,Total 8.9 mg/dL (7.6-11.0); Carbon Dioxide 22.9 mmol/L (21.0-32.0); Chloride 102 mmol/L (98-108); Globulin 2.2 g/dL (2.2-4.2); Glucose 105 mg/dL (70-99); Potassium 3.6 mmol/L (3.3-5.1); Vitamin B12 372 pg/mL (180-914); Vitamin D,25 Hydroxy 17.5 ng/mL (30-100)
== END | disposition home or self-care (01) ==
PROVIDERS: PCP Family Medicine; Visit Provider Family Medicine
DX: R73.09 Other abnormal glucose (principal); R63.5 Abnormal weight gain
CPT/HCPCS: 36415; 80053; 82306; 82607; 83036; 84439; 84443

== ENCOUNTER → 2025-04-28 | Outpatient (CLI) | payer MEDICARE, SELFPAY ==
--- NOTE | 2025-04-28 13:02 | RAD_ITS ---
PROCEDURE: CHEST PA AND LATERAL 04/28/2025 REASON FOR EXAM: ACUTE RIGHT SIDED THORACIC BACK PAIN TECHNIQUE: Procedure Code: RADCXR Modality: DX Procedure: CHEST PA AND LATERAL COMPARISON: None FINDINGS: Hardware: A radiopaque plate and screws is projected over the left mid to distal clavicle region. A radiopaque plate and screws appear to be in satisfactory position without evidence of fracture or loosening. Heart: Heart size and configuration are within normal limits. Pulmonary vasculature is unremarkable. Arteriosclerotic vascular disease of the aorta is noted. Mediastinum: Mediastinal silhouette is unremarkable. Lungs: Lungs are expanded and clear without evidence of atelectasis, consolidation, effusion or pneumonic infiltrate. Bones: No acute osseous abnormality is noted. Spondylosis of the thoracic spine is noted. There is slight increased kyphotic curvature of the thoracic spine. Degenerative disc disease is seen involving several of the thoracic discs. RAD/Chest PA and Lateral IMPRESSION: No acute cardiopulmonary process is identified radiographically. Spondylosis of the thoracic spine is noted. There is slight increased kyphotic curvature of the thoracic spine. Degenerative disc disease is seen involving several of the thoracic discs. Reading Location: [id number]
== END | disposition home or self-care (01) ==
PROVIDERS: PCP Family Medicine; Referring Provider Family Medicine; Visit Provider Family Medicine
DX: M54.6 Pain in thoracic spine (principal)
CPT/HCPCS: 71046

== ENCOUNTER 2025-05-16 07:48 | Day surgery (SDC) | payer MEDICARE, SELFPAY ==
--- NOTE | 2025-05-08 18:26 | PAT.ANE_ITS ---
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 When Was Last Pacemaker Check QUESTION #4 FULL TEXT: You/Your Family Experience fever (hyperthermia) with Anesthesia Last Oral Intake Last Oral intake: Last Oral Intake NPO since Meds taken in AM with sips of water? 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 Female Yes 05/08/25 10:39 HX of Motion Sickness No 05/08/25 10:39 HX of N/V After Surgery No 05/08/25 10:39 Non-Smoker Yes 05/08/25 10:39 Duration of Surgery greater No 05/08/25 10:39 than 60 minutes Number of Risk Factors 2 05/08/25 10:39 PONV Score Moderate Risk 05/08/25 10:39 Height & Weight Height & Weight: Anesthesia: Height & Weight Height 5 ft 5 in 05/02/25 13:57 Respiratory Assessment Respiratory Assessment - electrical maintenance worker: Respiratory Tract Infection Hx - electrical maintenance worker Hx Respiratory Tract Infection No 05/08/25 10:39 STOP Sleep Apnea STOP Sleep Apnea - electrical maintenance worker: STOP Sleep Apnea - electrical maintenance worker Hx Hypertension No 05/08/25 10:39 Hx Sleep Apnea No 05/08/25 10:39 CPAP BIPAP Do you snore loudly (louder No 05/08/25 10:39 than talking or can be heard Do you often feel tired/ No 05/08/25 10:39 fatigued/ sleepy during daytime? Has anyone observed you stop No 05/08/25 10:39 breathing during sleep? STOP Results Negative 05/08/25 10:39 QUESTION #5 FULL TEXT : Do you snore loudly (louder than talking or can be heard through closed doors)? 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 Specify any problems Hx of Preganancy in last 3 No 05/08/25 10:39 Months Nurse Filling Out Transfusion DSCHRIBER 05/08/25 10:39 & Questions: Date: 05/08/25 05/08/25 10:39 Time: 10:40 05/08/25 10:39 Patient unable to answer at this time (ie. confused, unrespo /Reproduction History /Reproductive History - electrical maintenance worker: /Reproductive Hx- electrical maintenance worker Hx Now No 05/08/25 10:39 Gestational Age (in weeks): EDC: Hx Hx Para Hx Section SAB No 05/08/25 10:39 PFS Medical History (Updated 05/08/25 @ 11:05 by Elen Lundberg) Dyslexia Cancer Multiple personality disorder Thyroid disease Arthritis Easy bruising Injury of back Back pain History of ulceration Non-smoker Asthma Shortness of breath on exertion History of edema History of echocardiogram History of stress test History of rheumatic fever History of trigger finger Hx of fracture of tibia Hx of fracture of clavicle Hx of intestinal obstruction GERD (gastroesophageal reflux disease) Neuropathy Bone cancer Thrombocytopenia Home Medications Medication Instructions Recorded Last Taken Type ntoctqmmyk-nvhmmhzctjfap-pzpwswuf 1 cap PO TID PRN liam n #15 caps 03/16/25 Unknown Rx 50 mg-300 mg-40 mg capsule (Fioricet) albuterol sulfate 90 mcg/actuation 1 inh inhalation Q4 -6H PRN 05/02/25 Unknown History breath activated powder inhaler shortness of breath or wheezing hydrochlorothiazide 12.5 mg tablet 12.5 mg PO QAM 04/10 11/01 Unknown History meclizine 50 mg tablet 50 mg PO BID 05/02/25 Unknow n History omeprazole 20 mg tablet,delayed 40 mg PO QDAY 05/02/25 Unknown History release potassium chloride 20 mEq 20 meq PO QDAY 05/02/25 Unkn own History tablet,extended release (K-Tab) prazosin 2 mg capsule 2 mg PO QHS 05/02/25 Unknown History sucralfate 100 mg/mL oral 10 ml PO QAC PRN IBS 5 Unknown History suspension (Carafate) iodine (kelp) 1 tab PO DAILY 05/08/25 Unkn own History Allergy/AdvReac Type Severity Reaction Status Date / Time cyclobenzaprine Allergy PT UNSURE Verified 05/08/25 10:34 OF REACTION diazepam (From Valium) Allergy PT UNSURE Verified 05/08/25 10:34 OF REACTION diphenhydramine (From Allergy Itching Verified 05/08/25 10:34 Benadryl) gabapentin Allergy PT UNSURE Verified 05/08/25 10:34 OF REACTION indomethacin (From Indocin) Allergy PT UNSURE Verified 05/08/25 10:34 OF REACTION Iodinated Contrast Media Allergy PT UNSURE Verified 05/08/25 10:34 OF REACTION methocarbamol Allergy PT UNSURE Verified 05/08/25 10:34 OF REACTION NSAIDS (Non-Steroidal Allergy PT UNSURE Verified 05/08/25 10:34 Anti-Inflamma OF REACTION Penicillins Allergy Anaphylaxis Verified 05/08/25 10:34 pregabalin Allergy Nausea/Vom/ Verified 05/08/25 10:34 Diarrhea promethazine (From Phenergan) Allergy PT UNSURE Verified 05/08/25 10:34 OF REACTION sulfacetamide (From Allergy PT UNSURE Verified 05/08/25 10:34 Sulfamide) OF REACTION sumatriptan Allergy PT UNSURE Verified 05/08/25 10:34 OF REACTION tramadol Allergy PT UNSURE Verified 05/08/25 10:34 OF REACTION Surgical History (Updated 05/08/25 @ 11:04 by Elen Lundberg) History of esophagogastroduodenoscopy (EGD) Hx of colonoscopy Hx of salpingo-oophorectomy, bilateral Hx of hysterectomy Hx of right cataract extraction Hx of left cataract extraction History of carpal tunnel surgery of right wrist History of carpal tunnel surgery of left wrist S/P bilateral mastectomy Status post left knee replacement Dickson's cyst of knee S/P foot surgery, right S/P ERCP S/P tonsillectomy History of cholecystectomy Social History Smoking Status: Never smoker alcohol intake: never substance use type: does not use Audit: Pertinent Findings Pertinent Findings EKG Perinent findings: 10/24/2023. Sinus rhythm with PACs. Recommendation Anesthesia Recommendation Anesthesia recommendation: OPTIMIZED for anesthesia
[2025-05-16] VITALS (9 sets, daily range): BP systolic 101–114; BP diastolic 54–72; PULSE 77–80; RESP 16–20; TEMP 36.3–36.5; O2SAT 93–99; BMI 27.9
[2025-05-16] MEDS: Lactated Ringers 1,000 ML 15 ML IV (08:31)
--- NOTE | 2025-05-16 08:54 | PCM.HP.BLA ---
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 Required: No Is patient in pain?: Yes (left thigh lipoma) Allergies cyclobenzaprine Allergy (Verified 05/02/25 13:58) PT UNSURE OF REACTION diazepam (From Valium) Allergy (Verified 05/02/25 13:58) PT UNSURE OF REACTION diphenhydramine (From Benadryl) Allergy (Verified 05/02/25 13:58) Itching gabapentin Allergy (Verified 05/02/25 13:58) PT UNSURE OF REACTION indomethacin (From Indocin) Allergy (Verified 05/02/25 13:58) PT UNSURE OF REACTION Iodinated Contrast Media Allergy (Verified 05/02/25 13:58) PT UNSURE OF REACTION methocarbamol Allergy (Verified 05/02/25 13:58) PT UNSURE OF REACTION NSAIDS (Non-Steroidal Anti-Inflamma Allergy (Verified 05/02/25 13:58) PT UNSURE OF REACTION Penicillins Allergy (Verified 05/02/25 13:58) Anaphylaxis pregabalin Allergy (Verified 05/02/25 13:58) Nausea/Vom/Diarrhea promethazine (From Phenergan) Allergy (Verified 05/02/25 13:58) PT UNSURE OF REACTION sulfacetamide (From Sulfamide) Allergy (Verified 05/02/25 13:58) PT UNSURE OF REACTION sumatriptan Allergy (Verified 05/02/25 13:58) PT UNSURE OF REACTION tramadol Allergy (Verified 05/02/25 13:58) PT UNSURE OF REACTION Medications Medication Instructions Recorded Confirmed Type hpwaxmnlgc-gkkelrehumptx-txanbtui 1 cap PO TID PRN pain #15 caps 03/16/25 01/02/25 Rx 50 mg-300 mg-40 mg capsule (Fioricet) albuterol sulfate 90 mcg/actuation 1 inh inhalation Q4-6H PRN 05/02/25 05/02/25 History breath activated powder inhaler hydrochlorothiazide 12.5 mg tablet 12.5 mg PO QAM 05/02/25 05/02/25 History meclizine 50 mg tablet 50 mg PO QDAY 05/02/25 05/02/25 History omeprazole 20 mg tablet,delayed 20 mg PO QDAY 05/02/25 05/02/25 History release potassium chloride 20 mEq 20 meq PO QDAY 05/02/25 05/02/25 History tablet,extended release (K-Tab) prazosin 2 mg capsule 2 mg PO QHS 05/02/25 05/02/25 History sucralfate 100 mg/mL oral 10 ml PO QAC PRN 05/02/25 05/02/25 History suspension (Carafate) tizanidine 4 mg tablet 4 mg PO QHS 05/02/25 05/02/25 History Have you fallen in the past year?: No PFSH Medical History GERD (gastroesophageal reflux disease) Polycystic ovary Osteoarthritis Neuropathy Murmur, cardiac High calcium levels Frequent headaches Carpal tunnel syndrome Cataracts, both eyes Bone cancer Breast cyst Low platelet count Back problem Arthritis Anemia Thrombocytopenia Surgical History (Updated 05/02/25 @ 13:57 by Natali Forman) S/P bilateral mastectomy Status post left knee replacement Dickson's cyst of knee S/P foot surgery, right S/P ERCP S/P tonsillectomy History of cholecystectomy Social History Smoking Status: Never smoker alcohol intake: never substance use type: does not use HPI HPI HPI: Patient is a 74-year-old female with a left thigh mass. She reports that is becoming larger and more painful. She says has been there for about a year. She denies any drainage from the area. ROS General General: Yes weight change, fatigue and breast cancer; No appetite, colon cancer or weakness HEENT HEENT: No difficulty swallowing, eye injury, eye surgery, swollen glands or hoarseness Endo Endocrine: No thyroid disease, diabetes mellitus, thyroid cancer, Hair loss, heat intolerance or cold intolerance Skin Skin: No rash or changing moles Breast Breast: No left breast lump, right breast lump, nipple discharge, breast pain, abnormal mammogram, abnormal US or breast enlargement Musc Musculoskeletal: Yes back problems and arthritis; No rheumatoid arthritis, gout or joint pain Cardio Cardiovascular: Yes murmur; No pacemaker, heart disease, atrial fibrillation, high blood pressure, heart attack, heart stent, palpitations, shortness of breath with exertion or chest pain Psych Psychiatric: No depression, anxiety or hearing voices Resp Respiratory: No shortness of breath, Yes sleep apnea, Yes cough, No COPD, Yes asthma, No emphysema and No wheezing Gastro Gastrointestinal: No abdominal pain, No nausea or vomiting, No diarrhea, No constipation, No blood in stool, Yes acid reflux, No hemorrhoids, No ulcers, Yes gallbladder problem and No black,tarry stools Ole Hematologic: No blood thinners, No blood disorders, Yes bleeding, No anemia and No blood clots Neuro Neurologic: No system reviewed and no additional complaints, except as documented, No as per HPI, No abnormal gait, No abnormal hearing, No abnormal movements, No abnormal speech, No behavioral changes, No burning sensations, No confusion, No convulsions, No disequilibrium, No dizziness, No localized weakness, No frequent falls, No headache(s), No lack of coordination, No loss of vision, No memory loss, Yes numbness, No other visual disturbances, No radicular pain, No restless legs, No sensory deficit, No syncope, Yes tingling, No tremor(s), No weakness and No other Exam Const General: cooperative Orientation: alert and oriented x3 HENMT Head: normal to inspection Neck Neck: normal visual inspection and full ROM Chest Chest palpation & inspection: normal inspection of the chest Resp Effort & Inspection: normal respiratory effort Auscultation: clear to auscultation bilaterally Cardio Rate: regular rate Rhythm: regular rhythm GI Inspection: non-distended Palpation: soft and nontender Skin General: no rashes or lesions noted Neuro General: patient alert and patient oriented x3 Extrem General: full ROM Psych Appearance: grossly normal Mental Status: mental status grossly normal Assessment and Plan Assessment and Plan (1) Mass of left thigh: Status: Acute Plan: The patient has a painful mass in the left thigh proximal. It is almost up in the groin. She had an ultrasound of this and we reviewed it and it is suggestive of a 3 cm lipoma. I discussed excising this with her in detail. I discussed the risks including but not limited to bleeding, infection, injury other organs like the great vessels. Patient understands the risks and is willing to proceed. Georgi Mims MD Pager: [facility] [address] [place] [address], [address] [place] [address] Office: I have examined the patient and the H&P has been reviewed. There are no clinical changes since date of exam.
--- NOTE | 2025-05-16 08:59 | PCM.PRE.AN2 ---
ASA Classification* ASA Classification ASA Classification: 3 Assessment & Plan Anesthesia* Anesthesia Assessment Anesthesia Assessment: Discussed sedation and/or anesthesia options, risks, benefits, and alternatives with patient/parents/legal guardian/POA. Questions invited. The patient/parents/legal guardian/POA seems to understand and agrees to proceed with anesthesia plan. Reviewed the physical assessment, medical history, allergy history and patient home medications list prior to surgery/procedure/anesthetic and documented any changes. Performed airway and anesthesia risk assessments. Anesthesia Type Anesthesia Type: General (Consider GlideScope if endotracheal tube is used.) History Source History Obtained from:: Patient and Chart Anesthesia Focused Assessment* Temperature: 97.7 F Pulse Rate: 79 Blood Pressure: 114/54 Respiratory Rate: 16 Pulse Ox: 99 Oxygen Delivery Method: Room Air Airway Assessment Mouth opens: >3 cm Mallampati Score: III Teeth Condition: Missing (1 missing tooth. Rest are tight.) and Implants (Patient has multiple implants. They are all tight.) Neck Range of motion (ROM): Limited ROM (Severe Restriction) Labs Anesthesia Preop lab: CBC WBC, (4.4-11.0) 4.8 K/mm3 11/27/24, 16:49 RBC, (4.2-5.4) 3.48 M/mm3 L 11/27/24, 16:49 Hgb, (12.0-15.0) 9.6 g/dL L 11/27/24, 16:49 Hct, (37-47) 30.3 % L 11/27/24, 16:49 Plt Count, (150-450) 66 K/mm3 L 11/27/24, 16:49 CHEMISTRY Potassium, (3.3-5.1) 3.6 mmol/L 04/11/25, 15:36 Sodium, (133-145) 138 mmol/L 04/11/25, 15:36 Magnesium, (1.6-2.6) 1.9 mg/dL 07/18/24, 12:21 BUN, (4-19) 20 mg/dL H 04/11/25, 15:36 Creatinine, (0.70-1.20) 0.93 mg/dL 04/11/25, 15:36 Glucose, (70-99) 105 mg/dL H 04/11/25, 15:36 TSH, (0.300-4.200) 1.010 uIU/mL 04/11/25, 15:36 COAG Pre-Assessment Diagnosis/Proposed Procedure Planned Operative Procedure(s): EXCISION LEFT THIGH MASS Anesthesia History Anesthesia History - terrazzo polisher: Anesthesia History - terrazzo polisher Hx Hospitalization No 05/08/25 10:39 Any Problems With Anesthesia No 05/08/25 10:39 Cholinesterase deficiency No 05/08/25 10:39 You/Your Family Experience No 05/08/25 10:39 fever (hyperthermia) with Relationship Recent Exposure to Contagious Disease Does patient have nerve No 05/08/25 10:39 stimulator Patient instructed to have device shut off --Does patient have Pacemaker No 05/16/25 08:33 or ICD? When Was Last Pacemaker Check QUESTION #4 FULL TEXT: You/Your Family Experience fever (hyperthermia) with Anesthesia Last Oral Intake Last Oral intake: Last Oral Intake NPO since 199905/16/25 08:33 Meds taken in AM with sips of No 05/16/25 08:33 water? Meds patient instructed to take am of surgery PONV PONV - terrazzo polisher: PONV - terrazzo polisher Female Yes 05/08/25 10:39 HX of Motion Sickness No 05/08/25 10:39 HX of N/V After Surgery No 05/08/25 10:39 Non-Smoker Yes 05/08/25 10:39 Duration of Surgery greater No 05/08/25 10:39 than 60 minutes Number of Risk Factors 2 05/08/25 10:39 PONV Score Moderate Risk 05/08/25 10:39 Height & Weight Height & Weight: Anesthesia: Height & Weight Height 5 ft 6 in 05/16/25 08:33 Weight: 78.5 kg 05/16/25 08:33 Body Mass Index (BMI) 27.9 05/16/25 08:33 Respiratory Assessment Respiratory Assessment - terrazzo polisher: Respiratory Tract Infection Hx - terrazzo polisher Hx Respiratory Tract Infection No 05/08/25 10:39 STOP Sleep Apnea STOP Sleep Apnea - terrazzo polisher: STOP Sleep Apnea - terrazzo polisher Hx Hypertension No 05/08/25 10:39 Hx Sleep Apnea No 05/08/25 10:39 CPAP BIPAP Do you snore loudly (louder No 05/08/25 10:39 than talking or can be heard Do you often feel tired/ No 05/08/25 10:39 fatigued/ sleepy during daytime? Has anyone observed you stop No 05/08/25 10:39 breathing during sleep? STOP Results Negative 05/08/25 10:39 QUESTION #5 FULL TEXT : Do you snore loudly (louder than talking or can be heard through closed doors)? Tobacco Use History Tobacco Use History - terrazzo polisher: Tobacco Use History - terrazzo polisher Tobacco Use Smoking Status Never smoker 05/08/25 10:39 Hx Tobacco Use No 05/08/25 10:39 Years Smoking Packs Smoked per Day Smoking Cessation Date was within the last 15 years Hx Smoking Cessation Date Hx Smoking Cessation Counseling Hematologic Medial History Hematologic Hx - terrazzo polisher: Hematologic Medical Hx - analytical sciences director Hx of Blood Transfusion No 05/08/25 10:39 Hx of Transfusion in last 3 No 05/08/25 10:39 Months Date of Last Transfusion (if within last 3 months) Ever experience any problems No 05/08/25 10:39 with transfusion(s)? Specify any problems Hx of Preganancy in last 3 No 05/08/25 10:39 Months Nurse Filling Out Transfusion DSCHRIBER 05/08/25 10:39 & Questions: Date: 05/08/25 05/08/25 10:39 Time: 10:40 05/08/25 10:39 Patient unable to answer at this time (ie. confused, unrespo /Reproduction History /Reproductive History - terrazzo polisher: /Reproductive Hx- terrazzo polisher Hx Now No 05/08/25 10:39 Gestational Age (in weeks): EDC: Hx Hx Para Hx Section SAB No 05/08/25 10:39 Does the father of the baby or his family experience fever w Father of the baby Malignant Hypertension history comment Active Medications Active Medications: Current Medications Generic Name Dose Route Start Last Admin Trade Name Freq PRN Reason Stop Dose Admin Clindamycin Phosphate 900 mg in 50 mls @ 75 mls/hr 05/16/25 13:00 Cleocin IV 05/16/25 13:39 INTRAOP ONE Lactated Ringer's 1,000 mls @ 15 mls/hr 05/16/25 08:15 05/16/25 08:31 IV 15 mls/hr .Q48H PAYAM Administration PFS Medical History Dyslexia Cancer Multiple personality disorder Thyroid disease Arthritis Easy bruising Injury of back Back pain History of ulceration Non-smoker Asthma Shortness of breath on exertion History of edema History of echocardiogram History of stress test History of rheumatic fever History of trigger finger Hx of fracture of tibia Hx of fracture of clavicle Hx of intestinal obstruction GERD (gastroesophageal reflux disease) Neuropathy Bone cancer Thrombocytopenia Home Medications Medication Instructions Recorded Last Taken Type hgvhxgxodr-zqeyhweggzcqk-dpblqmft 1 cap PO TID PRN pain #15 caps 03/16/25 Unknown Rx 50 mg-300 mg-40 mg capsule (Fioricet) albuterol sulfate 90 mcg/actuation 1 inh inhalation Q4-6H PRN 05/02/25 05/16/25 History breath activated powder inhaler shortness of breath or wheezing hydrochlorothiazide 12.5 mg tablet 12.5 mg PO QAM 05/02/25 05/15/25 History meclizine 50 mg tablet 50 mg PO BID 05/02/25 05/15/25 History omeprazole 20 mg tablet,delayed 40 mg PO QDAY 05/02/25 05/15/25 History release potassium chloride 20 mEq 20 meq PO QDAY 05/02/25 05/15/25 History tablet,extended release (K-Tab) prazosin 2 mg capsule 2 mg PO QHS 05/02/25 05/15/25 History sucralfate 100 mg/mL oral 10 ml PO QAC PRN IBS 05/02/25 05/15/25 History suspension (Carafate) iodine (kelp) 1 tab PO DAILY 05/08/25 05/15/25 History Allergy/AdvReac Type Severity Reaction Status Date / Time cyclobenzaprine Allergy PT UNSURE Verified 05/16/25 08:31 OF REACTION diazepam (From Valium) Allergy PT UNSURE Verified 05/16/25 08:31 OF REACTION diphenhydramine (From Allergy Itching Verified 05/16/25 08:31 Benadryl) gabapentin Allergy PT UNSURE Verified 05/16/25 08:31 OF REACTION indomethacin (From Indocin) Allergy PT UNSURE Verified 05/16/25 08:31 OF REACTION Iodinated Contrast Media Allergy PT UNSURE Verified 05/16/25 08:31 OF REACTION methocarbamol Allergy PT UNSURE Verified 05/16/25 08:31 OF REACTION NSAIDS (Non-Steroidal Allergy PT UNSURE Verified 05/16/25 08:31 Anti-Inflamma OF REACTION Penicillins Allergy Anaphylaxis Verified 05/16/25 08:31 pregabalin Allergy Nausea/Vom/ Verified 05/16/25 08:31 Diarrhea promethazine (From Phenergan) Allergy PT UNSURE Verified 05/16/25 08:31 OF REACTION sulfacetamide (From Allergy PT UNSURE Verified 05/16/25 08:31 Sulfamide) OF REACTION sumatriptan Allergy PT UNSURE Verified 05/16/25 08:31 OF REACTION tramadol Allergy PT UNSURE Verified 05/16/25 08:31 OF REACTION Surgical History History of esophagogastroduodenoscopy (EGD) Hx of colonoscopy Hx of salpingo-oophorectomy, bilateral Hx of hysterectomy Hx of right cataract extraction Hx of left cataract extraction History of carpal tunnel surgery of right wrist History of carpal tunnel surgery of left wrist S/P bilateral mastectomy Status post left knee replacement Dickson's cyst of knee S/P foot surgery, right S/P ERCP S/P tonsillectomy History of cholecystectomy Social History Smoking Status: Never smoker alcohol intake: never substance use type: does not use Review of Systems (Anesthesia) ROS Narrative System reviewed and no additional complaints, except as documented.
--- NOTE | 2025-05-16 09:30 | MASS_PTH ---
PATIENT: PANCHO CARRION [place] [facility] [id number] AGE/SX: 74/F ROOM: RE05/16/[address]: Dr. Georgi Mims MD : 1950 BED: DIS: 05/16/2025 SPEC #: [id number] RECD: 05/16/25 10:49 STATUS: GISELE REQ #: [id number] JOI: 05/16/25 09:[address]: Georgi Mims DEPT: SURGICAL PATHOLOGY RECD BY: Jaime Russo ENTERED: 05/16/25 11:51 SP TYPE: Mass OTHR DR: Dr. Surinder Castillo MD Tissues: A - Thigh, NOS Procedures: Surgery Specimen Level III HEADER OPERATION: Excision, mass left thigh PRE-OP DIAGNOSIS: Mass of left thigh TISSUE SUBMITTED: A- Left thigh mass MICROSCOPIC DIAGNOSIS A. Left thigh, "mass", excision: - Mature adipose consistent with lipoma. MICROSCOPIC DESCRIPTION Slides are reviewed. GROSS DESCRIPTION A. Received in formalin labeled with the patient's name and date of . Designated as " left thigh mass" is a 5.4 x 3.2 x 1.5 cm sesay-yellow, lobulated portion of soft tissue. Sectioning reveals yellow, focally congested, homogenous cut surfaces. Sedimentationist sections are submitted in 2 cassettes. HI [id number]
[2025-05-16] MEDS: fentaNYL 100 MCG/2 ML Ampul IV (09:35)
[2025-05-16] MEDS: Lactated Ringers 1,000 ML 1000 ML IV (09:35)
[2025-05-16] MEDS: Lidocaine 1% /Epi 1:100 (50ml) 50 ML VIAL (09:40)
--- NOTE | 2025-05-16 10:00 | OP.PCM_ITS ---
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 Hand Launderer: Mac Bermudez Tasks completed by commissary assistant: Opening & closing Type of Anesthesia: General/Regional RN Documented Start/Stop Times: Operation Date: 05/16/25 09:30 Case Time Into Pre-Op 05/16/25 08:10 Into Phase II Recovery 05/16/25 09:26 Out of Pre-Op 05/16/25 09:26 Anesthesia Start 05/16/25 09:35 Into Room 05/16/25 09:35 Procedure Start 05/16/25 09:50 Procedure Start Time: 09:50 Procedure Stop Time: 10:03 Select all DRAINS/GRAFTS/IMPLANTS that apply: None Estimated Blood Loss: 2 Specimen collected: Yes Description of specimen(s) removed: Left thigh mass Description of surgery: Patient was brought to the operating room and general anesthesia was induced. The left thigh was prepped and draped in usual sterile fashion. Ultrasound was used to localize the mass and it was marked. The thigh was reprepped and draped. An incision was marked and injected with local anesthetic. Incision was made with a scalpel. Electrocautery was used to maintain hemostasis. The lipoma easily was removed using sharp dissection. There was good hemostasis. The incision was closed with interrupted 3-0 Vicryl sutures and a running 4-0 Monocryl suture. The lipoma measured approximately 8 cm in length. It was in the superficial subcutaneous tissue. Surgical Findings: Large lipoma of left thigh Complications Complications: No Admit VTE Documentation VTE Mechan Device Prophylaxis: SCD's
--- NOTE | 2025-05-16 10:03 | DCINST_ITS ---
Discharge Instructions Diet Discharge Diet: Light diet - advance as tolerated Activity Discharge Activity: May Not Drive (for 24 hours) and May Shower Additional Activity Instructions:: Alternate ibuprofen and tylenol for pain Dressing / Incision Call your doctor if your incision/area has: Continuous Slow Oozing, Sudden Increased Bleeding, Increased Pain/ Swelling, Increased Redness, Foul Smelling Discharge and Swelling at the incision site Call your doctor if you observe: Fever of 101 or Higher Cleanse incision/area with: Soap & Water Follow Up Care Please Follow Up With: Georgi Mims MD When: Please call to schedule 2 week follow up appointment. [phone] Test Results: Test results from this visit will be discussed in further detail at your follow- up appointment, if applicable. Discharge Plan Admission Attending Provider: Georgi Mims Primary Care Provider: Surinder Castillo Instructions Print Language: Malaysian Discharge Orders/Prescriptions Prescriptions: No Action meclizine 50 mg tablet 50 mg PO BID sucralfate [Carafate] 100 mg/mL suspension 10 ml PO QAC PRN (Reason: IBS) prazosin 2 mg capsule 2 mg PO QHS hydrochlorothiazide 12.5 mg tablet 12.5 mg PO QAM omeprazole 20 mg tablet,delayed release (DR/EC) 40 mg PO QDAY potassium chloride [K-Tab] 20 mEq tablet extended release 20 meq PO QDAY albuterol sulfate 90 mcg/actuation aerosol powdr breath activated 1 inh inhalation Q4-6H PRN (Reason: shortness of breath or wheezing) alyqowwetw-esfudxlrnnmlo-zubg [Fioricet] 50-300-40 mg capsule 1 cap PO TID PRN (Reason: pain) Qty: 15 0RF iodine (kelp) Tablet 1 tab PO DAILY Referrals / Follow Up: Surinder Castillo MD [Primary Care Provider, Family Practice] Disposition Disposition (needs filled in before D/C Order can be placed): Home, Self Care
--- NOTE | 2025-05-16 10:16 | PCM.POST.ANE ---
Anesthesia: Postop Eval I Current Vital Signs Temperature: 97.4 F Pulse Rate: 80 Blood Pressure: 106/60 Respiratory Rate: 20 Pulse Ox: 93 Assessment Airway patent: Yes Spontaneous unlabored respirations: Yes nausea: No Vomiting: No Anesthesia Complication: No Fluid Hydration Crystalloid volume administer (ml): 500 Total IV fluid infused: 500 Progress Note Anesthesia document: Postop Eval 1 completed: Yes
--- NOTE | 2025-05-17 11:56 | POSTOPAN2_ITS ---
Anesthesia Postop Eval I Sum Postop Eval Completion status Anesthesia document: Postop Eval 1 completed: Yes Anesthesia Postop Eval I Summary Anesthesia Postop Eval I Summary: Anesthesia Postop Eval I: Assessment Summary Airway patent Yes 05/16/25 10:16 REGISTERED NURSE RENAL.[email or web address] Spontaneous unlabored Yes 05/16/25 10:16 REGISTERED NURSE RENAL.CSIR respirations Mental status nausea No 05/16/25 10:16 REGISTERED NURSE RENAL.CSIR Vomiting No 05/16/25 10:16 REGISTERED NURSE RENAL.CSIR Anesthesia Postop Eval I: Fluid Summary Crystalloid volume administer 500 05/16/25 10:16 REGISTERED NURSE RENAL.CSIR (ml) Colloids volume administered ( ml) Blood Product volume administered (ml) Total IV fluid infused 500 05/16/25 10:16 REGISTERED NURSE RENAL.CSIR Anesthesia Postop Eval I: Summary Notes Anesthesia Complication No 05/16/25 10:16 REGISTERED NURSE RENAL.CSIR Anesthesia Complication Comment: Post-operative progress note Anesthesia: Postop Eval II Evaluation Mental status: Awake and Calm Pain Level: 1 nausea: No Vomiting: No Complications Anesthesia Complication: No
--- NOTE | 2025-05-17 11:56 | PCM.POSTANE2 ---
Anesthesia Postop Eval I Sum Postop Eval Completion status Anesthesia document: Postop Eval 1 completed: Yes Anesthesia Postop Eval I Summary Anesthesia Postop Eval I Summary: Anesthesia Postop Eval I: Assessment Summary Airway patent Yes 05/16/25 10:16 SENIOR RESEARCH ENGINEER.CSIR Spontaneous unlabored Yes 05/16/25 10:16 SENIOR RESEARCH ENGINEER.CSIR respirations Mental status nausea No 05/16/25 10:16 SENIOR RESEARCH ENGINEER.CSIR Vomiting No 05/16/25 10:16 SENIOR RESEARCH ENGINEER.CSIR Anesthesia Postop Eval I: Fluid Summary Crystalloid volume administer 500 05/16/25 10:16 SENIOR RESEARCH ENGINEER.CSIR (ml) Colloids volume administered ( ml) Blood Product volume administered (ml) Total IV fluid infused 500 05/16/25 10:16 SENIOR RESEARCH ENGINEER.CSIR Anesthesia Postop Eval I: Summary Notes Anesthesia Complication No 05/16/25 10:16 SENIOR RESEARCH ENGINEER.CSIR Anesthesia Complication Comment: Post-operative progress note Anesthesia: Postop Eval II Evaluation Mental status: Awake and Calm Pain Level: 1 nausea: No Vomiting: No Complications Anesthesia Complication: No
== END 2025-05-16 11:07 | disposition home or self-care (01) ==
LOC: SDC 07:52 → AC 07:54
PROVIDERS: PCP Family Medicine; Referring Provider Surgery; Visit Provider Surgery
DX: D17.24 Benign lipomatous neoplasm of skin and subcutaneous tissue of left leg (principal); K21.9 Gastro-esophageal reflux disease without esophagitis; J45.909 Unspecified asthma, uncomplicated; Z79.899 Other long term (current) drug therapy
CPT/HCPCS: 27337; 01250; 88304; J2405

== ENCOUNTER 2025-06-27 17:05 | Emergency (ER) | payer OTHER, SELFPAY ==
[2025-06-27 17:07] VITALS: BP 151/83; PULSE 74; RESP 12; TEMP 36.4; O2SAT 98; BMI 28.9
--- NOTE | 2025-06-27 17:23 | ED.VIS.LOWEX ---
HPI History of Present Illness Chief Complaint: Lower Extremity Injury Informant: patient Narrative Narrative: Patient presents with 1 month of pain in the right forefoot that hurts worse with bearing weight. Does not recall an injury. She states she has chronic pain in her low back and sometimes this area of the right foot since she was in [place] in the , she states she has not been taking pain medication in the form of Vicodin for the past 2 years which she used to take for this pain, as it seemed to go away for a while but now it seems like it is back since I moved here. She states she tried to go to the MD for this but she tells us that she was told they will not see me for anything until my annual. She has chronic pain in her low back that is no different or new. She does have some numbness in some of her toes that is new, she denies any new numbness anywhere else, she states she has a history of multiple spine fractures that she sustained while in the and multiple nerves that were damaged in the past. She denies any new fevers, chills, or other systemic symptoms. [facility] Medical History Dyslexia Cancer Multiple personality disorder Thyroid disease Arthritis Easy bruising Injury of back Back pain History of ulceration Non-smoker Asthma Shortness of breath on exertion History of edema History of echocardiogram History of stress test History of rheumatic fever History of trigger finger Hx of fracture of tibia Hx of fracture of clavicle Hx of intestinal obstruction GERD (gastroesophageal reflux disease) Neuropathy Bone cancer Thrombocytopenia Home Medications ?Medication ?Instructions ?Recorded ?Last Taken ?Type lirssppwou-pfznubhfbaptk-zfhurdlc 1 cap PO TID PRN pain #15 caps 03/16/25 Unknown Rx 50 mg-300 mg-40 mg capsule (Fioricet) albuterol sulfate 90 mcg/actuation 1 inh inhalation Q4-6H PRN 05/02/25 05/16/25 History breath activated powder inhaler shortness of breath or wheezing hydrochlorothiazide 12.5 mg tablet 12.5 mg PO QAM 05/02/25 05/15/25 History meclizine 50 mg tablet 50 mg PO BID 05/02/25 05/15/25 History omeprazole 20 mg tablet,delayed 40 mg PO QDAY 05/02/25 05/15/25 History release potassium chloride 20 mEq 20 meq PO QDAY 05/02/25 05/15/25 History tablet,extended release (K-Tab) prazosin 2 mg capsule 2 mg PO QHS 05/02/25 05/15/25 History sucralfate 100 mg/mL oral 10 ml PO QAC PRN IBS 05/02/25 05/15/25 History suspension (Carafate) iodine (kelp) 1 tab PO DAILY 05/08/25 05/15/25 History hydrocodone-acetaminophen 5-325mg 1 tab PO Q6H PRN PRN Pain 3 days 06/27/25 Unknown Rx 5mg-325mg #12 TABLETS Allergy/AdvReac Type Severity Reaction Status Date / Time Iodinated Contrast Media Allergy Severe Anaphylaxis Verified 06/27/25 17:08 NSAIDS (Non-Steroidal Allergy Severe Anaphylaxis Verified 06/27/25 17:08 Anti-Inflamma cyclobenzaprine Allergy PT UNSURE Verified 06/27/25 17:08 OF REACTION diazepam (From Valium) Allergy PT UNSURE Verified 06/27/25 17:08 OF REACTION diphenhydramine (From Allergy Itching Verified 06/27/25 17:08 Benadryl) gabapentin Allergy PT UNSURE Verified 06/27/25 17:08 OF REACTION indomethacin (From Indocin) Allergy PT UNSURE Verified 06/27/25 17:08 OF REACTION methocarbamol Allergy PT UNSURE Verified 06/27/25 17:08 OF REACTION Penicillins Allergy Anaphylaxis Verified 06/27/25 17:08 pregabalin Allergy Nausea/Vom/ Verified 06/27/25 17:08 Diarrhea promethazine (From Phenergan) Allergy PT UNSURE Verified 06/27/25 17:08 OF REACTION sulfacetamide (From Allergy PT UNSURE Verified 06/27/25 17:08 Sulfamide) OF REACTION sumatriptan Allergy PT UNSURE Verified 06/27/25 17:08 OF REACTION tramadol Allergy PT UNSURE Verified 06/27/25 17:08 OF REACTION Surgical History History of esophagogastroduodenoscopy (EGD) Hx of colonoscopy Hx of salpingo-oophorectomy, bilateral Hx of hysterectomy Hx of right cataract extraction Hx of left cataract extraction History of carpal tunnel surgery of right wrist History of carpal tunnel surgery of left wrist S/P bilateral mastectomy Status post left knee replacement Dickson's cyst of knee S/P foot surgery, right S/P ERCP S/P tonsillectomy History of cholecystectomy Social History Smoking Status: Never smoker alcohol intake: never substance use type: does not use ROS ROS ED Constitutional Constitutional ED: Denies chills or fever(s) Musculoskeletal Musculoskeletal: Reports extremity pain; Denies neck pain Integumentary Denies Abrasions, rash or wounds Neurologic Neurologic: Denies paresthesias or weakness EXAM Physical Exam Const Vital Signs: 06/27/25 17:07 Temperature 97.6 F L Temperature Source Temporal Pulse Rate 74 Respiratory Rate 12 Blood Pressure 151/83 H Blood Pressure Mean 105 Pulse Ox 98 Oxygen Delivery Method Room Air Positive well nourished and well developed General Appearance ED: well developed and NAD Neck full ROM and supple Back/Spine normal ROM and normal to inspection Extremity Extremity Narrative: For range of motion and normal inspection right lower extremity/foot. She has some tenderness throughout most of the metacarpals 2-4 but not the midfoot. The toes are nontender but mobilizing them/flexing them creates more forefoot pain. Brisk cap refill all toes. No rashes or swelling or deformities. No edema in either one of the lower legs/ankles. Neuro oriented x3, no focal motor deficits and no sensory deficits noted Sensorium / Orientation: alert Psych mental status grossly normal and thought process normal Skin no wounds Rashes: no rashes MDM MDM MDM Narrative Medical decision making narrative: Assessment: The patient is a 74-year-old female with PMH of prior spinal hairline fractures presenting for acute on chronic right foot pain that markedly worsened two nights ago and is exacerbated by weight bearing. Right foot x-ray series is normal with no acute bony injury, making fracture unlikely; presentation most consistent with musculoskeletal pain flare. Plan: - Prescribed short course of [place]. - Discharged home with [facility]. Diagnostics: - Right foot x-ray series: no acute bony injury or abnormality. Independently interpreted by me, Cristino Nixon. Reevaluations: - Reviewed x-ray results with patient; she agrees with analgesic plan and outpatient [facility] follow[facility]. She is able to walk without difficulty. Portions of this note were generated using voice recognition software ([employer]). I have reviewed the contents and every effort has been made to ensure accuracy; however, inadvertent errors in grammar, spelling, punctuation, or word choice may occur, that were not noted before signing the document and should not alter the intended clinical meaning. Radiography Diagnostic Testing: Clinical Impression(s) from Imaging Studies Foot X-Ray 06/27/25 17:25 IMPRESSION: Mild osteoarthrosis. Hallux valgus deformity. Reading Location: [facility] Discharge Plan Triage Chief Complaint: Lower Extremity Injury ED Provider: Cristino Nixon Dx/Rx/DC Orders Clinical Impression: Acute pain of right foot Instructions: Parts of a Foot Prescriptions: New hydrocodone-acetaminophen 5-325 mg tablet 1 tab PO Q6H PRN PRN (Reason: Pain) 3 Days Qty: 12 0RF No Action meclizine 50 mg tablet 50 mg PO BID sucralfate [Carafate] 100 mg/mL suspension 10 ml PO QAC PRN (Reason: IBS) prazosin 2 mg capsule 2 mg PO QHS hydrochlorothiazide 12.5 mg tablet 12.5 mg PO QAM omeprazole 20 mg tablet,delayed release (DR/EC) 40 mg PO QDAY potassium chloride [K-Tab] 20 mEq tablet extended release 20 meq PO QDAY albuterol sulfate 90 mcg/actuation aerosol powdr breath activated 1 inh inhalation Q4-6H PRN (Reason: shortness of breath or wheezing) [id number]-lusppvguropow-[id number] [Fioricet] 50-300-40 mg capsule 1 cap PO TID PRN (Reason: pain) Qty: 15 0RF iodine (kelp) Tablet 1 tab PO DAILY Primary Care Provider: Surinder Castillo Referrals: [facility] [Provider Group] - As soon as possible Referral Note: or MD clinic of your choice Print Language: Stateless Disposition Disposition: Home, Self Care
--- NOTE | 2025-06-27 17:25 | RAD_ITS ---
PROCEDURE: FOOT MIN 3 VIEWS 06/27/2025 REASON FOR EXAM: PAIN METACARPALS, TOES TECHNIQUE: Procedure Code: RADFO Modality: DX Procedure: FOOT MIN 3 VIEWS COMPARISON: 03/20/2025. FINDINGS: No evidence of acute fracture or dislocation. Mild degenerative changes throughout the foot. Hallux valgus deformity. Calcaneal enthesophytes. The soft tissues are unremarkable. RAD/Foot min 3 Views IMPRESSION: Mild osteoarthrosis. Hallux valgus deformity. Reading Location: [facility]
[2025-06-27 18:33] VITALS: BP 148/78; PULSE 84; RESP 16; TEMP 36.6; O2SAT 100
== END 2025-06-27 18:36 | disposition home or self-care (01) ==
PROVIDERS: Emergency Provider Emergency Medicine; PCP Family Medicine; Visit Provider Emergency Medicine
DX: M79.671 Pain in right foot (principal); G89.29 Other chronic pain
CPT/HCPCS: 73630; 99282

== ENCOUNTER → 2025-06-27 | Outpatient (CLI) | payer MEDICARE, SELFPAY ==
--- NOTE | 2025-06-27 16:40 | US_ITS ---
PROCEDURE: EXT NON VASC LIMITED/SOFT TISS 06/27/2025 REASON FOR EXAM: NODULE R FOREARM TECHNIQUE: Procedure Code: [id number] Modality: US Procedure: EXT NON VASC LIMITED/SOFT TISS US/Ext Non Vasc Limited/Soft Tiss IMPRESSION: Within the right forearm, there is a 0.9 x 1.4 x 0.3 cm, 1 x 0.7 x 0.3 cm, and 0.5 x 0.7 x 0.4 cm isoechoic nonvascular structures likely lipomas. Reading Location: [facility]
== END | disposition home or self-care (01) ==
LOC: US 16:37
PROVIDERS: PCP Family Medicine; Referring Provider Family Medicine; Visit Provider Family Medicine
DX: R22.31 Localized swelling, mass and lump, right upper limb (principal)
CPT/HCPCS: 76882

== ENCOUNTER → 2025-07-04 | Outpatient (CLI) | payer MEDICARE, SELFPAY ==
--- NOTE | 2025-07-04 13:30 | RAD_ITS ---
EXAM: XR Lumbosacral Spine, 2 or 3 Views CLINICAL INDICATION: CHRONIC LOW BACK PAIN TECHNIQUE: Frontal and lateral views of the lumbar spine and sacrum. COMPARISON: XR Lumbosacral Spine dated 03/26/2025 FINDINGS: VERTEBRAE: Oixpdqzh-fq-kktpfv endplate degenerative changes and disc degeneration of L1-2 S1. Moderate facet arthropathy of L1-S1. No acute fracture. Normal alignment. SACRUM/COCCYX: Unremarkable as visualized. No acute fracture. DISC SPACES: No acute findings. No significant narrowing. SOFT TISSUES: Unremarkable. RAD/Lumbar Spine 2 or 3 Views IMPRESSION: Degenerative changes as above. Reading Location: [id number]
--- NOTE | 2025-07-04 13:30 | RAD_ITS ---
EXAM: XR Thoracic Spine, 2 Views CLINICAL INDICATION: CHRONIC THORACIC BACK PAIN TECHNIQUE: Frontal and lateral views of the thoracic spine. COMPARISON: No relevant prior studies available. FINDINGS: VERTEBRAE: Degenerative disc disease and facet arthropathy throughout the thoracic spine. No acute fracture. Normal alignment. DISC SPACES: See above. SOFT TISSUES: Unremarkable. RAD/Thoracic Spine 2 Views IMPRESSION: Degenerative changes thoracic spine as described. Reading Location: [id number]
== END | disposition home or self-care (01) ==
PROVIDERS: PCP Family Medicine; Referring Provider Anesthesiology Pain Medicine; Visit Provider Anesthesiology Pain Medicine
DX: M54.41 Lumbago with sciatica, right side (principal); M54.42 Lumbago with sciatica, left side; G89.29 Other chronic pain; M54.6 Pain in thoracic spine
CPT/HCPCS: 72070; 72100